=== PATIENT | female | born 1950 | race Two or more races ===

== ENCOUNTER 2021-09-03 13:10 | Inpatient (IN) | payer OTHER ==
[~2021-09-03] VITALS: Ht 144.8 cm; Wt 70.2 kg
[2021-09-03 13:55] LABS: Basophils # (auto) 0 10 ^3/uL (0-0.2); Basophils % (auto) 0.5 % (0.0-2.0); Eosinophils # (auto) 0 10 ^3/uL (0-0.8); Eosinophils % (auto) 0.3 % (0.0-7.0); Hematocrit 42.2 % (36.0-46.0); Hemoglobin 14.4 g/dL (12.2-16.2); Lymphocytes # (auto) 0.8 10 ^3/uL (0.4-5.4); Lymphocytes % (auto) 16.8 % (10.0-50.0); Mean Corpuscular Hemoglobin 32.1 pg (28.0-32.0); Mean Corpuscular Hgb Conc. 34.1 g/dL (32.0-36.0); Monocytes # (auto) 0.2 10 ^3/uL (0-1.3); Monocytes % (auto) 5.1 % (0.0-12.0); Neutrophils # (auto) 3.6 10 ^3/uL (1.6-8.6); Neutrophils % (auto) 77.3 % (37.0-80.0); Nucleated Red Blood Cells % 0.1 %; Red Blood Cells 4.49 10^6/uL (4.0-5.20); Red Cell Distribution Width 14.1 % (11.8-14.3); White Blood Cell 4.7 10^3/uL (4.4-10.8)
[2021-09-03 14:14] LABS: Albumin 3.1 g/dL (3.4-5.0); Calcium 8.9 mg/dL (8.5-10.1); Potassium 4.2 mmol/L (3.5-5.1)
[2021-09-03 14:42] LABS: Bilirubin, Total 1.5 mg/dL (0.2-1.0); Total Protein 7.5 g/dL (6.4-8.2)
[2021-09-04] MEDS ORDERED: HYDROcodone-ACET 5/325MG TAB PO PRN (03:30)
[2021-09-04] MEDS ORDERED: ACETAMINOPHEN 325 MG TAB PO PRN (03:30)
[2021-09-04] MEDS ORDERED: ONDANSETRON HCL 4 MG/2 ML VIAL IV PRN (03:30)
[2021-09-04 04:55] VITALS: BP 122/74
[2021-09-04] MEDS ORDERED: CHOL20007 PO (06:23)
[2021-09-04] MEDS ORDERED: CYAN100T7 PO (06:23)
[2021-09-04 09:00] VITALS: BP 97/61
[2021-09-04 12:53] VITALS: BP 128/76
[2021-09-04 17:00] VITALS: BP 136/83
[2021-09-04 22:00] VITALS: BP 129/88
[2021-09-05 05:00] VITALS: BP_SYST 135; BP_SYST 152; BP_SYST 155; BP_DIAS 70; BP_DIAS 80
[2021-09-05 09:00] VITALS: BP 128/78
[2021-09-05 10:20] LABS: Albumin 2.9 g/dL (3.4-5.0); Calcium 8.4 mg/dL (8.5-10.1); Potassium 4.6 mmol/L (3.5-5.1)
[2021-09-05 10:24] LABS: BUN/Creatinine Ratio 15.4; Bilirubin, Total 2.1 mg/dL (0.2-1.0)
[2021-09-05 13:00] VITALS: BP 127/76
[2021-09-05] MEDS ORDERED: MORPHINE SULFATE INJECTION 2 MG/ML SYRG IV PRN (13:15)
[2021-09-05] MEDS ORDERED: NITROGLYCERIN 0.4 MG SL TAB SL PRN (13:15)
[2021-09-05 16:51] VITALS: BP 145/85
== END 2021-09-05 16:35 | disposition left against medical advice (07) | DRG 312 ==
LOC: EDBD 13:10 → ER 13:10 → TELE 09-04 03:31 → INTOOBSV 09-04 03:31 → TELE-CENTR 09-04 04:55 → OBSVTOIN 09-05 13:14
PROVIDERS: ADMIT Internal Medicine; ATTEND Internal Medicine
DX: R55 Syncope and collapse (principal); R42 Dizziness and giddiness; E11.9 Type 2 diabetes mellitus without complications; E78.5 Hyperlipidemia, unspecified; F41.9 Anxiety disorder, unspecified; I25.10 Atherosclerotic heart disease of native coronary artery without angina pectoris; Z20.822 Contact with and (suspected) exposure to COVID-19; J45.909 Unspecified asthma, uncomplicated; Z53.29 Procedure and treatment not carried out because of patient's decision for other reasons; G30.9 Alzheimer's disease, unspecified; F02.80 Dementia in other diseases classified elsewhere, unspecified severity, without behavioral disturbance, psychotic disturbance, mood disturbance, and anxiety; I10 Essential (primary) hypertension; I25.2 Old myocardial infarction; Z82.49 Family history of ischemic heart disease and other diseases of the circulatory system; Z83.3 Family history of diabetes mellitus
CPT/HCPCS: 36415; 70450; 70551; 71045; 80053; 84484; 85025; 87426; 93005; 93306; 95819; 97163; G0378

== ENCOUNTER → 2023-02-17 | Outpatient (CLI) | payer OTHER ==
[~2023-02-17] MED LIST: CHOL20007 PO; CYAN100T7 PO
[2023-02-17 10:28] LABS: Basophils # (auto) 0 10 ^3/uL (0-0.2); Eosinophils # (auto) 0 10 ^3/uL (0-0.8); Hemoglobin 14.1 g/dL (12.2-16.2); Monocytes # (auto) 0.2 10 ^3/uL (0-1.3); White Blood Cell 2.6 10^3/uL (4.4-10.8)
[2023-02-17 10:31] LABS: Basophils % (auto) 0.6 % (0.0-2.0); Eosinophils % (auto) 1.3 % (0.0-7.0); Hematocrit 40.7 % (36.0-46.0); Lymphocytes % (auto) 38.8 % (10.0-50.0); Mean Corpuscular Hgb Conc. 34.6 g/dL (32.0-36.0); Mean Corpuscular Volume 98.4 fL (80.0-100.0); Monocytes % (auto) 8.8 % (0.0-12.0); Neutrophils # (auto) 1.3 10 ^3/uL (1.6-8.6); Neutrophils % (auto) 50.5 % (37.0-80.0); Nucleated Red Blood Cells % 0.2 %; Red Blood Cells 4.14 10^6/uL (4.0-5.20); Red Cell Distribution Width 14.3 % (11.8-14.3)
[2023-02-17 10:43] LABS: Urine Bacteria FEW /hpf (None Seen); Urine Blood Negative /uL (Negative); Urine Mucus FEW (None Seen); Urine Specific Gravity 1.019 (1.001-1.035); Urine WBC 3 /hpf (0 - 5)
[2023-02-17 11:06] LABS: BUN/Creatinine Ratio 28.6 (10.0-20.0); Bilirubin, Total 1.5 mg/dL (0.2-1.0); Calcium 8.3 mg/dL (8.5-10.1); Total Protein 7.2 g/dL (6.4-8.2)
[2023-02-18 10:33] LABS: Hepatitis B Surface Antibody Negative (Negative)
[2023-02-18 14:02] LABS: Hepatitis C Antibody Negative (Negative)
[2023-02-18 14:05] LABS: Hepatitis A Total Antibody Positive (Negative)
== END | disposition home or self-care (01) ==
LOC: LAB 10:08
PROVIDERS: ATTEND Student in an Organized Health Care Education/Training Program
DX: R73.9 Hyperglycemia, unspecified (principal); K76.9 Liver disease, unspecified; R03.0 Elevated blood-pressure reading, without diagnosis of hypertension
CPT/HCPCS: 36415; 80053; 80061; 81001; 82105; 83036; 85025; 86704; 86706; 86708; 86803; 87340

== ENCOUNTER → 2023-04-19 | Outpatient (CLI) | payer OTHER ==
[2023-04-19 12:07] LABS: Basophils # (auto) 0 10 ^3/uL (0-0.2); Eosinophils # (auto) 0.1 10 ^3/uL (0-0.8); Lymphocytes # (auto) 1.2 10 ^3/uL (0.4-5.4); Mean Corpuscular Volume 97.4 fL (80.0-100.0); Monocytes # (auto) 0.2 10 ^3/uL (0-1.3); Neutrophils # (auto) 1.2 10 ^3/uL (1.6-8.6)
[2023-04-19 12:10] LABS: Basophils % (auto) 0.4 % (0.0-2.0); Eosinophils % (auto) 2.5 % (0.0-7.0); Hematocrit 40.4 % (36.0-46.0); Hemoglobin 13.8 g/dL (12.2-16.2); Lymphocytes % (auto) 44.7 % (10.0-50.0); Mean Corpuscular Hemoglobin 33.2 pg (28.0-32.0); Mean Corpuscular Hgb Conc. 34.1 g/dL (32.0-36.0); Monocytes % (auto) 8.8 % (0.0-12.0); Neutrophils % (auto) 43.6 % (37.0-80.0); Nucleated Red Blood Cells % 0.1 %; Red Blood Cells 4.15 10^6/uL (4.0-5.20); Red Cell Distribution Width 14.2 % (11.8-14.3); White Blood Cell 2.7 10^3/uL (4.4-10.8)
[2023-04-19 12:18] LABS: INR 1.28 (0.9-1.15); Partial Thromboplastin Time 30.6 SEC (24.5-34.5)
[2023-04-19 12:36] LABS: Urine Bacteria MANY /hpf (None Seen); Urine Blood Negative /uL (Negative); Urine Hyaline Cast FEW /lpf (0 - 2); Urine Mucus MODERATE (None Seen); Urine Specific Gravity 1.023 (1.001-1.035); Urine WBC 21 /hpf (0 - 5)
[2023-04-19 12:44] LABS: Albumin 2.8 g/dL (3.4-5.0); Calcium 8.7 mg/dL (8.5-10.1); Potassium 3.9 mmol/L (3.5-5.1)
[2023-04-19 12:49] LABS: BUN/Creatinine Ratio 21.2 (10.0-20.0); Bilirubin, Total 1.3 mg/dL (0.2-1.0)
[2023-04-19 13:17] LABS: % Iron Saturation 93.1 % (15-50)
[2023-04-19 13:31] LABS: Hepatitis B Surface Antibody Negative (Negative)
[2023-04-19 14:08] LABS: Hepatitis A Total Antibody Positive (Negative)
[2023-04-19 15:54] LABS: Hepatitis C Antibody Negative (Negative)
[2023-04-20 08:06] LABS: RPR Non Reactive (Non Reactive)
== END | disposition home or self-care (01) ==
LOC: LAB 11:28
DX: Z12.11 Encounter for screening for malignant neoplasm of colon (principal); K74.69 Other cirrhosis of liver; E78.5 Hyperlipidemia, unspecified
CPT/HCPCS: 36415; 80053; 80061; 81001; 82270; 82728; 83036; 83540; 83550; 85025; 85610; 85730; 86592; 86703; 86704; 86706; 86708; 86803; 87340

== ENCOUNTER → 2023-08-18 | Outpatient (CLI) | payer OTHER ==
[2023-08-18 11:28] LABS: Basophils # (auto) 0 10 ^3/uL (0-0.2); Eosinophils # (auto) 0 10 ^3/uL (0-0.8); Hemoglobin 13.6 g/dL (12.2-16.2); Mean Corpuscular Hemoglobin 33.3 pg (28.0-32.0); Mean Corpuscular Hgb Conc. 34.1 g/dL (32.0-36.0); Monocytes # (auto) 0.2 10 ^3/uL (0-1.3); Nucleated Red Blood Cells % 0.2 %; Red Cell Distribution Width 14.3 % (11.8-14.3); White Blood Cell 2.7 10^3/uL (4.4-10.8)
[2023-08-18 11:30] LABS: Basophils % (auto) 0.5 % (0.0-2.0); Eosinophils % (auto) 1.7 % (0.0-7.0); Hematocrit 39.9 % (36.0-46.0); Lymphocytes % (auto) 38.7 % (10.0-50.0); Mean Corpuscular Volume 97.7 fL (80.0-100.0); Monocytes % (auto) 7.7 % (0.0-12.0); Neutrophils # (auto) 1.4 10 ^3/uL (1.6-8.6); Neutrophils % (auto) 51.4 % (37.0-80.0); Red Blood Cells 4.09 10^6/uL (4.0-5.20)
[2023-08-18 11:46] LABS: INR 1.27 (0.9-1.15); Prothrombin Time 13.1 sec (9.3-11.8)
[2023-08-18 11:52] LABS: Alanine Aminotransferase 33 U/L (7-40); Albumin 3.4 g/dL (3.2-4.8); Alkaline Phosphatase 200 U/L (46-116); Anion Gap 6 (5-15); Aspartate Aminotransferase 58 U/L (13-40); BUN/Creatinine Ratio 19.6 (10.0-20.0); Bilirubin, Total 1.6 mg/dL (0.2-1.0); Blood Urea Nitrogen 9 mg/dL (9-23); Calcium 8.6 mg/dL (8.7-10.4); Carbon Dioxide 25 mmol/L (20-30); Chloride 109 mmol/L (98-107); Potassium 3.9 mmol/L (3.5-5.1); Sodium 140 mmol/L (136-145); Total Protein 7.1 g/dL (5.7-8.2)
[2023-08-18 12:18] LABS: Glucose 102 mg/dL (74-106)
== END | disposition home or self-care (01) ==
LOC: LAB 11:07
PROVIDERS: ATTEND Internal Medicine Gastroenterology
DX: K74.60 Unspecified cirrhosis of liver (principal); R94.5 Abnormal results of liver function studies
CPT/HCPCS: 36415; 80053; 82105; 82140; 85025; 85610

== ENCOUNTER 2023-09-07 14:27 | Emergency (ER) | payer OTHER ==
[~2023-09-07] VITALS: Ht 144.8 cm; Wt 8.0 kg
[2023-09-07] MEDS ORDERED: ACET500T58 PO (21:56)
[2023-09-07] MEDS ORDERED: AMOX875T4 PO (21:56)
[2023-09-07 22:39] VITALS: BP 135/75; PULSE 73; RESP 18; TEMP 98.2; O2SAT 98
== END 2023-09-07 22:54 | disposition home or self-care (01) ==
LOC: ER 14:27
DX: T16.2XXA Foreign body in left ear, initial encounter (principal); X58.XXXA Exposure to other specified factors, initial encounter; Y93.89 Activity, other specified; Y92.89 Other specified places as the place of occurrence of the external cause; Y99.8 Other external cause status
CPT/HCPCS: 69200

== ENCOUNTER → 2023-11-19 | Outpatient (CLI) | payer OTHER ==
[~2023-11-19] MED LIST changes: +ACET500T58 PO; +AMOX875T4 PO
[2023-11-19 11:57] LABS: Basophils # (auto) 0 10 ^3/uL (0-0.2); Eosinophils # (auto) 0.1 10 ^3/uL (0-0.8); Eosinophils % (auto) 1.6 % (0.0-7.0); Lymphocytes # (auto) 1.5 10 ^3/uL (0.4-5.4); Monocytes # (auto) 0.3 10 ^3/uL (0-1.3); Red Blood Cells 4.25 10^6/uL (4.0-5.20); White Blood Cell 4.1 10^3/uL (4.4-10.8)
[2023-11-19 11:59] LABS: Basophils % (auto) 0.6 % (0.0-2.0); Hematocrit 41.2 % (36.0-46.0); Hemoglobin 14.1 g/dL (12.2-16.2); Lymphocytes % (auto) 36.6 % (10.0-50.0); Mean Corpuscular Hemoglobin 33.1 pg (28.0-32.0); Mean Corpuscular Hgb Conc. 34.1 g/dL (32.0-36.0); Mean Corpuscular Volume 97.1 fL (80.0-100.0); Monocytes % (auto) 7.8 % (0.0-12.0); Neutrophils # (auto) 2.2 10 ^3/uL (1.6-8.6); Neutrophils % (auto) 53.4 % (37.0-80.0); Nucleated Red Blood Cells % 0.1 %; Red Cell Distribution Width 14.7 % (11.8-14.3)
[2023-11-19 12:09] LABS: Platelet Estimate Decreased
[2023-11-19 12:39] LABS: Urine Bacteria FEW /hpf (None Seen); Urine Blood Negative /uL (Negative); Urine Clarity HAZY (Clear); Urine Color Yellow (Yellow); Urine Mucus FEW (None Seen); Urine Protein, UAD TRACE (Negative); Urine Specific Gravity 1.022 (1.001-1.035); Urine WBC 13 /hpf (0 - 5); Urine pH 6.5 (5.0-8.0)
[2023-11-19 12:56] LABS: Alanine Aminotransferase 33 U/L (7-40); Albumin 3.3 g/dL (3.2-4.8); Alkaline Phosphatase 241 U/L (46-116); Anion Gap 6 (5-15); Aspartate Aminotransferase 55 U/L (13-40); BUN/Creatinine Ratio 22.4 (10.0-20.0); Blood Urea Nitrogen 11 mg/dL (9-23); Calcium 8.7 mg/dL (8.5-10.1); Carbon Dioxide 24 mmol/L (20-30); Chloride 110 mmol/L (98-107); Glucose 112 mg/dL (74-106); LDL Cholesterol 102 mg/dL (< 100); Sodium 140 mmol/L (136-145); Triglycerides 74 mg/dL (< 150)
[2023-11-19 12:57] LABS: Bilirubin, Total 1.5 mg/dL (0.2-1.0); Cholesterol 167 mg/dL (< 200); HDL Cholesterol 57 mg/dL (40-59); Total Protein 6.9 g/dL (5.7-8.2)
[2023-11-19 13:00] LABS: Creatinine, Urine 132.92 mg/dL (30.0-125.0)
== END | disposition home or self-care (01) ==
LOC: LAB 11:43
DX: E11.9 Type 2 diabetes mellitus without complications (principal); E78.5 Hyperlipidemia, unspecified; E55.9 Vitamin D deficiency, unspecified
CPT/HCPCS: 36415; 80053; 80061; 81001; 82043; 82570; 83036; 84443; 85025

== ENCOUNTER → 2024-03-31 | Outpatient (CLI) | payer OTHER ==
[2024-03-31 11:53] LABS: Urine Bacteria MOD /hpf (None Seen); Urine Blood Negative /uL (Negative); Urine Clarity Turbid (Clear); Urine Color Yellow (Yellow); Urine Hyaline Cast FEW /lpf (0 - 2); Urine Mucus MODERATE (None Seen); Urine Protein, UAD 1+ (Negative); Urine Specific Gravity 1.027 (1.001-1.035); Urine Urobilinogen 3 mg/dL (Negative); Urine WBC 12 /hpf (0 - 5); Urine pH 6.5 (5.0-9.0)
[2024-03-31 11:56] LABS: Basophils # (auto) 0 10 ^3/uL (0-0.2); Eosinophils # (auto) 0 10 ^3/uL (0-0.8); Lymphocytes # (auto) 1.1 10 ^3/uL (0.4-5.4); Monocytes # (auto) 0.3 10 ^3/uL (0-1.3); Neutrophils # (auto) 1.7 10 ^3/uL (1.6-8.6); Nucleated Red Blood Cells % 0.1 %; Red Blood Cells 4.18 10^6/uL (4.0-5.20); White Blood Cell 3.1 10^3/uL (4.4-10.8)
[2024-03-31 11:57] LABS: Basophils % (auto) 0.7 % (0.0-2.0); Eosinophils % (auto) 1.4 % (0.0-7.0); Hematocrit 40.7 % (36.0-46.0); Hemoglobin 14.4 g/dL (12.2-16.2); Lymphocytes % (auto) 34.7 % (10.0-50.0); Mean Corpuscular Hemoglobin 34.4 pg (28.0-32.0); Mean Corpuscular Hgb Conc. 35.3 g/dL (32.0-36.0); Mean Corpuscular Volume 97.4 fL (80.0-100.0); Monocytes % (auto) 9.1 % (0.0-12.0); Neutrophils % (auto) 54.1 % (37.0-80.0); Red Cell Distribution Width 14.2 % (11.8-14.3)
[2024-03-31 12:14] LABS: Alanine Aminotransferase 27 U/L (7-40); Albumin 3.4 g/dL (3.2-4.8); Alkaline Phosphatase 163 U/L (46-116); Anion Gap 5 (5-15); Aspartate Aminotransferase 49 U/L (13-40); Bilirubin, Total 1.9 mg/dL (0.2-1.0); Blood Urea Nitrogen 11 mg/dL (9-23); Calcium 9.2 mg/dL (8.5-10.1); Carbon Dioxide 25 mmol/L (20-30); Chloride 108 mmol/L (98-107); Cholesterol 144 mg/dL (< 200); Glucose 108 mg/dL (74-106); HDL Cholesterol 47 mg/dL (40-59); LDL Cholesterol 79 mg/dL (< 100); Potassium 4.4 mmol/L (3.5-5.1); Sodium 138 mmol/L (136-145); Triglycerides 87 mg/dL (< 150)
== END | disposition home or self-care (01) ==
LOC: LAB 11:36
DX: E11.69 Type 2 diabetes mellitus with other specified complication (principal); E78.2 Mixed hyperlipidemia; D69.6 Thrombocytopenia, unspecified
CPT/HCPCS: 36415; 80053; 80061; 81001; 83036; 85025

== ENCOUNTER → 2024-07-25 | Outpatient (CLI) | payer OTHER ==
[~2024-07-25] MED LIST changes: -AMOX875T4 PO; +FURO1TAB33 PO; +SPIR25TA8 PO
[2024-07-25 10:38] LABS: Basophils # (auto) 0 10 ^3/uL (0-0.2); Eosinophils # (auto) 0 10 ^3/uL (0-0.8); Monocytes # (auto) 0.3 10 ^3/uL (0-1.3); Neutrophils # (auto) 1.9 10 ^3/uL (1.6-8.6); Red Cell Distribution Width 14.6 % (11.8-14.3)
[2024-07-25 10:43] LABS: Basophils % (auto) 0.6 % (0.0-2.0); Eosinophils % (auto) 1.1 % (0.0-7.0); Hematocrit 40.1 % (36.0-46.0); Hemoglobin 13.9 g/dL (12.2-16.2); Lymphocytes # (auto) 0.9 10 ^3/uL (0.4-5.4); Lymphocytes % (auto) 29.7 % (10.0-50.0); Mean Corpuscular Hemoglobin 34.3 pg (28.0-32.0); Mean Corpuscular Hgb Conc. 34.6 g/dL (32.0-36.0); Mean Corpuscular Volume 99.3 fL (80.0-100.0); Monocytes % (auto) 8.5 % (0.0-12.0); Neutrophils % (auto) 60.1 % (37.0-80.0); Nucleated Red Blood Cells % 0.1 %; Platelet Count (auto) 49 10^3/uL (140-450); Red Blood Cells 4.04 10^6/uL (4.0-5.20); White Blood Cell 3.1 10^3/uL (4.4-10.8)
[2024-07-25 10:53] LABS: Alanine Aminotransferase 41 U/L (7-40); Albumin 3.4 g/dL (3.2-4.8); Alkaline Phosphatase 218 U/L (46-116); Anion Gap 6 (5-15); Aspartate Aminotransferase 52 U/L (13-40); BUN/Creatinine Ratio 21.8 (10.0-20.0); Blood Urea Nitrogen 12 mg/dL (9-23); Calcium 9.6 mg/dL (8.7-10.4); Carbon Dioxide 26 mmol/L (20-31); Chloride 111 mmol/L (98-107); Glucose 130 mg/dL (74-106); LDL Cholesterol 117 mg/dL (< 100); Potassium 4.5 mmol/L (3.5-5.1); Sodium 143 mmol/L (136-145); Triglycerides 86 mg/dL (< 150); Urine Bacteria FEW /hpf (None Seen); Urine Blood Negative /uL (Negative); Urine Clarity Clear (Clear); Urine Color Yellow (Yellow); Urine Mucus FEW (None Seen); Urine Protein, UAD Negative (Negative); Urine Urobilinogen Normal (Negative); Urine WBC 2 /hpf (0 - 5)
[2024-07-25 10:54] LABS: Bilirubin, Total 1.4 mg/dL (0.2-1.0); Cholesterol 201 mg/dL (< 200); HDL Cholesterol 61 mg/dL (40-59); Total Protein 7.1 g/dL (5.7-8.2)
[2024-07-25 11:13] LABS: Creatinine, Urine 87.29 mg/dL (30.0-125.0)
== END | disposition home or self-care (01) ==
LOC: LAB 09:50
DX: E11.69 Type 2 diabetes mellitus with other specified complication (principal); E78.5 Hyperlipidemia, unspecified; E55.9 Vitamin D deficiency, unspecified
CPT/HCPCS: 36415; 80053; 80061; 81001; 82043; 82105; 82306; 82570; 83036; 84443; 85025; 87086

== ENCOUNTER → 2024-12-19 | Outpatient (CLI) | payer OTHER ==
[2024-12-19 13:18] LABS: Basophils # (auto) 0 10 ^3/uL (0-0.2); Basophils % (auto) 0.4 % (0.0-2.0); Eosinophils # (auto) 0 10 ^3/uL (0-0.8); Eosinophils % (auto) 0.9 % (0.0-7.0); Hematocrit 39.5 % (36.0-46.0); Lymphocytes # (auto) 0.9 10 ^3/uL (0.4-5.4); Mean Corpuscular Hemoglobin 34.5 pg (28.0-32.0); Mean Corpuscular Hgb Conc. 35.4 g/dL (32.0-36.0); Mean Corpuscular Volume 97.3 fL (80.0-100.0); Monocytes # (auto) 0.3 10 ^3/uL (0-1.3); Monocytes % (auto) 8.8 % (0.0-12.0); Neutrophils % (auto) 60.9 % (37.0-80.0); Nucleated Red Blood Cells % 0.1 %; Red Blood Cells 4.07 10^6/uL (4.0-5.20); White Blood Cell 3.2 10^3/uL (4.4-10.8)
[2024-12-19 13:19] LABS: Platelet Count (auto) 96 10^3/uL (140-450)
[2024-12-19 13:25] LABS: Amphetamine Screen, Urine Neg (NEGATIVE); Barbiturate Scree,Urine Neg (NEGATIVE); Benzodiazephine Screen, Urine Neg (NEGATIVE); Cannabinoid Screen, Urine Neg (NEGATIVE); Cocaine Screen, Urine Neg (NEGATIVE); Opiate Scree,Urine Neg (NEGATIVE); Phencyclidine Screen, Urine Neg (NEGATIVE)
[2024-12-19 14:05] LABS: Albumin 3.5 g/dL (3.2-4.8); Anion Gap 6 (5-15); BUN/Creatinine Ratio 18.2 (10.0-20.0); Blood Urea Nitrogen 10 mg/dL (9-23); Calcium 9.4 mg/dL (8.7-10.4); Carbon Dioxide 25 mmol/L (20-31); Chloride 106 mmol/L (98-107); Cholesterol 139 mg/dL (< 200); HDL Cholesterol 43 mg/dL (40-59); LDL Cholesterol 76 mg/dL (< 100); Potassium 4.2 mmol/L (3.5-5.1); Sodium 137 mmol/L (136-145); Total Protein 7.2 g/dL (5.7-8.2); Triglycerides 84 mg/dL (< 150)
[2024-12-19 14:06] LABS: Alanine Aminotransferase 45 U/L (7-40); Alkaline Phosphatase 189 U/L (46-116); Aspartate Aminotransferase 59 U/L (13-40); Bilirubin, Total 2.2 mg/dL (0.2-1.0); Glucose 120 mg/dL (74-106)
== END | disposition home or self-care (01) ==
LOC: LAB 12:05
PROVIDERS: ATTEND Nurse Practitioner Family
DX: E11.69 Type 2 diabetes mellitus with other specified complication (principal); E55.9 Vitamin D deficiency, unspecified; D69.6 Thrombocytopenia, unspecified; R79.89 Other specified abnormal findings of blood chemistry
CPT/HCPCS: 36415; 80053; 80061; 80307; 82306; 83036; 85025

== ENCOUNTER 2024-12-22 08:50 | Day surgery (SDC) | payer OTHER ==
[2024-12-19 12:32] LABS: Basophils # (auto) 0 10 ^3/uL (0-0.2); Eosinophils # (auto) 0 10 ^3/uL (0-0.8); Monocytes # (auto) 0.3 10 ^3/uL (0-1.3)
[2024-12-19 12:34] LABS: Basophils % (auto) 0.4 % (0.0-2.0); Eosinophils % (auto) 0.9 % (0.0-7.0); Hematocrit 39.5 % (36.0-46.0); Lymphocytes # (auto) 0.9 10 ^3/uL (0.4-5.4); Mean Corpuscular Hemoglobin 34.5 pg (28.0-32.0); Mean Corpuscular Hgb Conc. 35.4 g/dL (32.0-36.0); Mean Corpuscular Volume 97.3 fL (80.0-100.0); Monocytes % (auto) 8.8 % (0.0-12.0); Neutrophils % (auto) 60.9 % (37.0-80.0); Nucleated Red Blood Cells % 0.1 %; Red Blood Cells 4.07 10^6/uL (4.0-5.20); White Blood Cell 3.2 10^3/uL (4.4-10.8)
[2024-12-19 12:48] LABS: INR 1.22 (0.9-1.15); Partial Thromboplastin Time 30.3 SEC (24.5-34.5); Prothrombin Time 12.7 sec (9.3-11.8)
[2024-12-19 13:13] LABS: Platelet Count (auto) 96 10^3/uL (140-450)
[2024-12-19 13:28] LABS: Albumin 3.5 g/dL (3.2-4.8); Anion Gap 7 (5-15); BUN/Creatinine Ratio 22.2 (10.0-20.0); Blood Urea Nitrogen 12 mg/dL (9-23); Calcium 9.6 mg/dL (8.7-10.4); Carbon Dioxide 26 mmol/L (20-31); Chloride 105 mmol/L (98-107); Potassium 4.2 mmol/L (3.5-5.1); Sodium 138 mmol/L (136-145); Total Protein 7.2 g/dL (5.7-8.2)
[2024-12-19 13:29] LABS: Alanine Aminotransferase 46 U/L (7-40); Alkaline Phosphatase 188 U/L (46-116); Aspartate Aminotransferase 58 U/L (13-40); Bilirubin, Total 2.2 mg/dL (0.2-1.0); Glucose 120 mg/dL (74-106)
[~2024-12-22] VITALS: Ht 144.8 cm; Wt 63.0 kg
[~2024-12-22 08:50] MED LIST changes: -FURO1TAB33 PO; -SPIR25TA8 PO
[2024-12-22] MEDS ORDERED: SODIUM CHLORIDE LOCK 10 ML ONE (10:49)
[2024-12-22 10:54] VITALS: PULSE 79; RESP 16; O2SAT 99
[2024-12-22] MEDS ORDERED: LIDOCAINE VISCOUS 2% 15ML UD ONE (10:57)
[2024-12-22] MEDS: LIDOCAINE VISCOUS 2% 15ML UD ONE (10:57)
[2024-12-22] MEDS: MIDAZOLAM HCL 5 MG/ML-1ML VIAL ONE (10:59)
[2024-12-22] MEDS: diphenhdrAMINE HCL 50 MG/1 ML VL ONE (10:59)
[2024-12-22] MEDS: fentaNYL CITRATE 100 MCG/2 ML VL ONE (10:59)
[2024-12-22 11:12] VITALS: PULSE 69; RESP 13; TEMP 98.8; O2SAT 98
--- NOTE | 2024-12-22 11:12 | DVHOP2 ---
Operative Report DATE OF OPERATION: 12/22/24 PROCEDURE: Upper Endoscopy with biopsy. PREOPERATIVE INDICATION: The patient is a 74 -year-old female undergoing endoscopy for left upper quadrant pain POSTOPERATIVE DIAGNOSES: 1. Mild gastritis and gastropathy involving the entire body of the stomach number 2. 1 cm sliding-type hiatal hernia 3. 1+ distal esophageal varices 4. Otherwise normal examination up to the 2nd and 3rd part of the duodenum with no active bleeding no fresh or old blood in the stomach PROCEDURE PERFORMED BY: Marjorie Syed GI NURSE: Jasmin SCOPE: Olympus videoendoscope. ASA CLASS: 3 PREOPERATIVE MEDICATIONS: Versed 3 mg, Fentanyl 50 mcg, Benadryl 50 mg I administered moderate sedation throughout this _7_ minutes procedure. An independent trained observer pushed medications at my direction, and monitored the patient's level of consciousness and physiological status throughout. PROCEDURE IN DETAIL: After obtaining an informed consent, the patient was placed on left lateral decubitus position. The patient was then sedated with the above medications. A bite block was placed between her teeth. The endoscope was then passed through the oropharynx, into the esophagus, and through the stomach and pylorus up to the second and third part of the duodenum. The endoscope was then withdrawn. The 2nd and 3rd part of the duodenal and the duodenal bulb were normal. The pre-pyloric area and antrum showed mild gastritis On retroflexion and straight on view the patient had moderate gastropathy involving the body of the stomach. Duodenal and gastric biopsies were obtained. The endoscope was then withdrawn into the distal esophagus where patient had a 1 cm sliding-type hiatal hernia with slightly irregular squamocolumnar junction Patient had a trace to 1+ distal esophageal varices without stigmata of bleeding. The remaining mid to proximal esophagus and oropharynx were unremarkable The patient tolerated the procedure well without difficulty. COMPLICATIONS : None SPECIMENS: Duodenal biopsies Gastric biopsies DISPOSITION: Stable D/C to home PLAN: 1. Await for biopsy result 2. Will place pt on Protonix 40 mg p.o. daily 3. Resume GI soft diet advance as tolerated 4. Outpatient follow up with me in 4-6 weeks to review results and discuss further management 5. Consider trial of beta-blockers for variceal bleeding prophylaxis MARJORIE SYED MD Dec 22, 2024 11:12
[2024-12-22 11:20] VITALS: PULSE 67; RESP 13; O2SAT 100
[2024-12-22 12:13] VITALS: BP 124/62; PULSE 64; RESP 14; O2SAT 100
== END 2024-12-22 12:28 | disposition home or self-care (01) ==
LOC: GI 08:50
PROVIDERS: ATTEND Internal Medicine Gastroenterology
DX: R10.12 Left upper quadrant pain (principal); K21.9 Gastro-esophageal reflux disease without esophagitis; K29.50 Unspecified chronic gastritis without bleeding; K31.89 Other diseases of stomach and duodenum; K44.9 Diaphragmatic hernia without obstruction or gangrene; K74.60 Unspecified cirrhosis of liver; I85.00 Esophageal varices without bleeding; F32.A Depression, unspecified; F41.9 Anxiety disorder, unspecified; Z83.3 Family history of diabetes mellitus; Z98.890 Other specified postprocedural states; Z79.899 Other long term (current) drug therapy
CPT/HCPCS: 36415; 43239; 80053; 85025; 85610; 85730; 88305; 88312; 88342; J1200; J2250; J3010; J7030

== ENCOUNTER 2025-03-01 11:11 | Outpatient (CLI) | payer OTHER ==
[2025-03-01 11:45] LABS: Basophils # (auto) 0 10 ^3/uL (0-0.2); Eosinophils # (auto) 0 10 ^3/uL (0-0.8); Hemoglobin 13.6 g/dL (12.2-16.2); Lymphocytes # (auto) 0.8 10 ^3/uL (0.4-5.4); Mean Corpuscular Hemoglobin 33.6 pg (28.0-32.0); Monocytes # (auto) 0.3 10 ^3/uL (0-1.3); Neutrophils # (auto) 2.1 10 ^3/uL (1.6-8.6)
[2025-03-01 11:48] LABS: Basophils % (auto) 0.4 % (0.0-2.0); Hematocrit 38.7 % (36.0-46.0); Lymphocytes % (auto) 24.8 % (10.0-50.0); Mean Corpuscular Hgb Conc. 35.1 g/dL (32.0-36.0); Mean Corpuscular Volume 95.9 fL (80.0-100.0); Monocytes % (auto) 8.3 % (0.0-12.0); Neutrophils % (auto) 65.5 % (37.0-80.0); Nucleated Red Blood Cells % 0.1 %; Platelet Count (auto) 55 10^3/uL (140-450); Red Blood Cells 4.04 10^6/uL (4.0-5.20); Red Cell Distribution Width 14.1 % (11.8-14.3); White Blood Cell 3.1 10^3/uL (4.4-10.8)
[2025-03-01 11:49] LABS: Urine Bacteria FEW /hpf (None Seen); Urine Blood Negative /uL (Negative); Urine Clarity Clear (Clear); Urine Color Yellow (Yellow); Urine Mucus FEW (None Seen); Urine Protein, UAD TRACE (Negative); Urine Specific Gravity 1.026 (1.001-1.035); Urine Squamous Epithelial Cell FEW /hpf (<5); Urine Urobilinogen 2 mg/dL (Negative); Urine WBC 4 /HPF (0-5)
[2025-03-01 12:22] LABS: Albumin 3.3 g/dL (3.2-4.8); Amylase 85 U/L (30-118); Anion Gap 7 (5-15); BUN/Creatinine Ratio 23.9 (10.0-20.0); Blood Urea Nitrogen 11 mg/dL (9-23); Carbon Dioxide 25 mmol/L (20-31); Lipase 37 U/L (12-53); Potassium 4.3 mmol/L (3.5-5.1); Sodium 140 mmol/L (136-145); Total Protein 6.8 g/dL (5.7-8.2)
[2025-03-01 12:23] LABS: Alanine Aminotransferase 51 U/L (7-40); Alkaline Phosphatase 207 U/L (46-116); Aspartate Aminotransferase 67 U/L (0-34); Bilirubin, Total 1.8 mg/dL (0.2-1.0); Calcium 8.6 mg/dL (8.7-10.4); Chloride 108 mmol/L (98-107); Glucose 142 mg/dL (74-106)
[2025-03-01 14:50] LABS: Triglycerides 75 mg/dL (< 150)
[2025-03-01 14:51] LABS: LDL Cholesterol 76 mg/dL (< 100)
[2025-03-01 14:52] LABS: Cholesterol 145 mg/dL (< 200); HDL Cholesterol 46 mg/dL (40-59)
[2025-03-01 15:04] LABS: Creatinine, Urine 194.6 mg/dL (30.0-125.0)
== END 2025-03-01 17:00 | disposition home or self-care (01) ==
LOC: LAB 11:11
PROVIDERS: ATTEND Nurse Practitioner Family
DX: E78.5 Hyperlipidemia, unspecified (principal); E55.9 Vitamin D deficiency, unspecified; E11.69 Type 2 diabetes mellitus with other specified complication; R10.12 Left upper quadrant pain
CPT/HCPCS: 36415; 80053; 80061; 81001; 82043; 82150; 82306; 82570; 82607; 83036; 83690; 84443; 85025

== ENCOUNTER 2025-03-22 01:27 | Inpatient (IN) | payer OTHER ==
[2025-03-22] VITALS (7 sets, daily range): BP systolic 116–137; BP diastolic 52–78; PULSE 75–85; RESP 13–18; TEMP 97.7–98; O2SAT 96–98
[~2025-03-22] VITALS: Ht 144.8 cm; Wt 73.1 kg
--- NOTE | 2025-03-22 01:49 | ED.PDOC ---
HPI Comments 74 year old female presents to the ED via EMS with a chief complaint of chest pain onset 3 hours. Patient states she has been experiencing Rt sided chest pain for the past 3 hours, radiates to LT side. She has also been experiencing nausea, was given Nitro by EMS in route to ED. PMHx liver cirrhosis. Denies vomiting, diarrhea, headache, dizziness, blurry vision, fevers, chills, numbness/tingling. No other symptoms or modifying factors present at this time. Chief Complaint: Chest Pain Time Seen by MD: 01:40 Primary Care Provider: CUMMINS Reviewed Notes: Medications, Allergies Allergies: Coded Allergies: NO KNOWN ALLERGIES (Unverified , 09/03/21) Home Meds Active Scripts Acetaminophen (Acetaminophen) 500 Mg Tab, 500 MG PO Q6HPRN, #30 TAB 0 Refills Prov:JEZ CAMACHO 09/07/23 Reported Medications Cyanocobalamin (Vitamin B12) 100 Mcg Tab, 100 MCG PO DAILY, TAB 09/04/21 Cholecalciferol (VITAMIN D3) 2,000 Unit Tab, 1 TAB PO DAILY, #30 TAB 5 Refills 09/04/21 Information Source: Patient, Emergency Med Personnel Mode of Arrival: EMS Severity: Mild Timing: Hours Duration: Since onset Prehospital treatment: Other (Nitro) Location: Chest (R) Quality: Sharp Onset: At Rest Cardiac Risk Factors: None PE Risk Factors: None History of: None Past Medical History PAST MEDICAL HISTORY: Liver Surgical History: Denies all surgeries EMPLOYMENT ATTORNEY History: No Pertinent EMPLOYMENT ATTORNEY History Family History Family History: Unknown Social History Smoker: Non-Smoker Alcohol: Denies ETOH Use Drugs: Denies Drug Use Lives In: Home Constitutional: denies: chills, diaphoresis, fatigue, fever, malaise, sweats, weakness, others EENTM: denies: blurred vision, double vision, ear bleeding, ear discharge, ear drainage, ear pain, ear ringing, eye pain, eye redness, hearing loss, mouth pain, mouth swelling, nasal discharge, nose bleeding, nose congestion, nose pain, photophobia, tearing, throat pain, throat swelling, voice changes, others Respiratory: denies: cough, hemoptysis, orthopnea, SOB at rest, shortness of breath, SOB with excertion, stridor, wheezing, others Cardiovascular: reports: chest pain; denies: dizzy spells, diaphoresis, Dyspnea on exertion, edema, irregular heart beat, left arm pain, lightheadedness, palpitations, PND, syncope, others Gastrointestinal: reports: nausea; denies: abdomen distended, abdominal pain, blood streaked bowels, constipated, diarrhea, dysphagia, difficulty swallowing, hematemesis, melena, poor appetite, poor fluid intake, rectal bleeding, rectal pain, vomiting, others Genitourinary: denies: abnormal vagina bleeding, burning, dyspareunia, dysuria, flank pain, frequency, hematuria, incontinence, pain, , vagina discharge, urgency, others Neurological: denies: dizziness, fainting, headache, left sided numbness, left sided weakness, numbness, paresthesia, pre-existing deficit, right sided numbness, right sided weakness, seizure, speech problems, tingling, tremors, weakness, others Musculoskeletal: denies: back pain, gout, joint pain, joint swelling, muscle pain, muscle stiffness, neck pain, others Integumetry: denies: bruises, change in color, change in hair/nails, dryness, laceration, lesions, lumps, rash, wounds, others Allergic/Immunocompromised: denies: Difficulty Healing, Frequent Infections, Hives, Itching, others Hematologic/Lymphatic: denies: anemia, blood clots, easy bleeding, easy bruising, swollen glands, others Endocrine: denies: excessive hunger, excessive sweating, excessive thirst, excessive urination, flushing, intolerance to cold, intolerance to heat, unexplained weight gain, unexplained weight loss, others Psychiatric: denies: anxiety, bipolar disorder, depression, hopeless, panic disorder, schizophrenia, sleepless, suicidal, others All Other Systems: Reviewed and Negative Physical Exam General Appearance: No Apparent Distress, Normal HEENT: Normal ENT Inspection, Pharynx Normal, TMs Normal Neck: Full Range of Motion, Non-Tender, Normal, Normal Inspection Respiratory: Chest Non-Tender, Lungs Clear, No Accessory Muscle Use, No Respiratory Distress, Normal Breath Sounds Cardiovascular: No Edema, No JVD, No Murmur, No Gallop, Normal Peripheral Pulses, Regular Rate/Rhythm Breast Exam: Deferred Gastrointestinal: No Organomegaly, Non Tender, No Pulsatile Mass, Normal Bowel Sounds, Soft Genitalia: Deferred Pelvic: Deferred Rectal: Deferred Extremities: No calf tenderness, Normal capillary refill, Normal inspection, Normal range of motion, Non-tender, No pedal edema Musculoskeletal : Apperance: Normal Neurologic: Alert, optical brightener maker helper II-XII nml as Tested, No Motor Deficits, Normal Affect, Normal Mood, No Sensory Deficits Cerebellar Function: Normal Reflexes: Normal Skin: Dry, Normal Color, Warm Lymphatic: No Adenopathy Was a procedure done? Was a procedure done?: No Time of 1ST Reevaluation: 02:10 Reevaluation 1ST: Unchanged Patient Education/Counseling: Diagnosis, Treatment, Prognosis Family Education/Counseling: No Family Present Critical Care Note Critical Care Time?: No Stability Stability form required: No I personally scribed for ANNIE HARRISON MD ([email or web address]) on 03/22/25 at 01:49. Electronically submitted by Lakeshia Davis ([email or web address]). ANNIE HARRISON MD Mar 22, 2025 01:49
[2025-03-22 02:18] LABS: Hematocrit 33.4 % (36.0-46.0); Hemoglobin 11.6 g/dL (12.2-16.2); Mean Corpuscular Hemoglobin 33.6 pg (28.0-32.0); Mean Corpuscular Volume 96.7 fL (80.0-100.0); Nucleated Red Blood Cells % 0.0 %
[2025-03-22 02:30] LABS: Chloride 107 mmol/L (98-107); Potassium 4.1 mmol/L (3.5-5.1); Sodium 139 mmol/L (136-145)
[2025-03-22 02:31] LABS: Anion Gap 6 (5-15); Calcium 8.9 mg/dL (8.7-10.4); Carbon Dioxide 26 mmol/L (20-31)
[2025-03-22 02:36] LABS: BUN/Creatinine Ratio 26.4 (10.0-20.0); Blood Urea Nitrogen 14 mg/dL (9-23)
--- NOTE | 2025-03-22 02:39 | DVH ---
CHEST RADIOGRAPH Indication: chest pain Technique: Single frontal view of the chest was obtained Comparison: CHEST PORTABLE on DOS: 09/03/21 IMPRESSION: Heart appears normal in size. The lungs appear clear without focal airspace opacity, effusion, or pn eumothorax
[2025-03-22 02:40] LABS: Glucose 287 mg/dL (74-106)
--- NOTE | 2025-03-22 05:54 | ECG ---
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
[2025-03-22 09:01] LABS: Urine Protein, UAD Negative (Negative)
[2025-03-22] MEDS ORDERED: ONDANSETRON HCL 4 MG/2 ML VIAL IV PRN (12:15)
[2025-03-22] MEDS ORDERED: ACETAMINOPHEN 325 MG TAB PO PRN (12:15)
--- NOTE | 2025-03-22 13:01 | ECG ---
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
--- NOTE | 2025-03-22 13:03 | DVH ---
EXAM: CT CT AB PEL WO CON-NO ORAL OR IV HISTORY: Abdominal pain COMPARISON: Chest x-rays dated 03/22/2025 and 09/03/2021 TECHNIQUE: Helical CT images of the abdomen and pelvis were performed without IV contrast. Sagittal a nd coronal reformatted images were obtained. This CT exam was performed using one or more of the foll owing dose reduction techniques: Automated exposure control, adjustment of the mA and/or kv according to patient size, or the use of iterative reconstruction techniques. Radiation Dose: Abdomen/Pelvis: CTDIvol 16.01 mGy, DLP 827.69 mGy*cm. FINDINGS: CT abdomen: There are irregular opacities in the lung bases, greater on the right. There are small r ight and trace left pleural effusions. The heart is not enlarged. Hepatic margins are quite nodular. There is low to moderate volume upper abdominal ascites. Small gallstones accumulate in the dependen t portion of the gallbladder. The noncontrast spleen, pancreas, and adrenal glands are unremarkable. There subcentimeter bilateral renal nonobstructing calculi. No abdominal aortic aneurysm. The left re nal vein is retroaortic. There is a moderate sized fatty umbilical hernia. CT pelvis: No abnormal bowel dilatation or free air. There is low to moderate volume pelvic ascites. There are descending and sigmoid colon diverticula without definite evidence of acute diverticulitis . The appendix is not dilated. The urinary bladder is unremarkable. Probable section scar. There is advanced lower lumbar degenerative disc disease and facet arthropathy. IMPRESSION: 1. Irregular opacities in the lung bases, small right and trace left pleural effusions. This appeara nce may be due to atelectasis, pneumonia, and/or scarring. 2. Nodular hepatic margins consistent with advanced cirrhosis. There is associated low to moderate vo lume abdominopelvic ascites. 3. Cholelithiasis. 4. Nonobstructing bilateral nephrolithiasis. 5. Colonic diverticulosis without evidence of acute diverticulitis. 6. Advanced lower lumbar degenerative disc disease and facet arthropathy. 7. No evidence of bowel obstruction, acute appendicitis, or other acute process in the abdomen or pel vis.
[2025-03-22] MEDS: MORPHINE SULFATE INJ 2 MG/ml SYRG IM ONE (13:06)
[2025-03-22] MEDS: SODIUM CHLOR 0.9% PF (SALINE LOCK) 10ML VIAL/SYR IV SCH (14:23)
[2025-03-22] MEDS: AZITHROMYCIN 250 MG TAB PO ONE (14:23)
[2025-03-22] MEDS: cefTRIAXone 1GM/50ML D5W 50 ML IV ONE (14:23)
[2025-03-22] MEDS: KETOROLAC TROMETH 30 MG/ML 1ML VIAL IV ONE (16:55)
--- NOTE | 2025-03-22 19:25 | DVHHPRES ---
History of Present Illness Resident Creating Document: BLAIRE IS[place] History of Present Illness Patient is a 74-year-old female with prior medical history of liver cirrhosis, hypertension, prediabetes, and GERD arrived via ambulance to the ED with chief complaint of sudden lower abdominal pain that began after having dinner with her daughter, that generalized and included the past and left arm, pain is described as intermittent sharp pressure, with intensity of 4/10, aggravated by deep inhalation and is associated with nausea, diaphoresis, and shortness of breath. Patient denied fever, chills, vomiting, cough, dizziness, and palpitations. On evaluation in the ED, she presented chest wall tenderness, abdominal pain when trying to sit up, and abdominal pain to palpation. Twelve lead EKG done in the ED showed sinus rhythm and troponins negative. Labs significant for WBC of 4, hemoglobin 11.6, and platelets of 37. Chest x-ray shows lungs appear clear without focal airspace opacity, effusion or pneumothorax. Patient admitted for further monitoring and workup. On admission, abdominal CT showed opacities in the lung bases, greater on the right with small right and trace left pleural effusions suggestive of atelectasis or pneumonia. For this reason, she is started on IV azithromycin and IV ceftriaxone possible pneumonia. Cardiovascular: HTN GI: GERD Hepatobiliary: Cirrhosis Grav: 4 Para: 4 Past Medical History Prior medical history of: -prediabetes -hypertension, noncompliant with medication -GERD -liver cirrhosis Past Surgical History: Other (Endoscopy: 12/2024) Family History: Cancer (Throat cancer in sister), DM (Mother and Six sisters) Smoke: No ALCOHOL: none Drugs: None Lives: with Family Domestic Violence: Neg Review of Systems Constitutional: Yes: Other (Dizziness) ENT: Other (Dry mouth) Gastrointestinal: Abdominal Pain Musculoskeletal: arm pain Allergies: Coded Allergies: NO KNOWN ALLERGIES (Unverified , 09/03/21) Medications Current Medications Medications Dose Ordered Sig/Giuliana Route Start Time Stop Time Status Last Admin Dose Admin Sodium Chloride 10 ml Q8HR IV 03/22/25 14:00 03/22/25 14:23 10 ML Ondansetron HCl 4 mg Q4HP PRN IV 03/22/25 12:15 Pantoprazole Sodium 40 mg DAILY PO 03/23/25 10:00 Ceftriaxone Sodium 50 ml @ 100 mls/hr DAILY@09 IV 03/23/25 09:00 Azithromycin 500 mg DAILY PO 03/23/25 10:00 Exam Vital Signs Vital Signs Date Time Temp Pulse Resp B/P (MAP) Pulse Ox O2 Delivery O2 Flow Rate FiO2 03/22/25 16:48 97.7 78 16 116/69 (85) 98 97.7 03/22/25 15:27 Room Air* 0 21 Exam General: The patient alert and oriented in person place and time. Patient following commands HEENT: Normocephalic, atraumatic, dry mucous membrane Respiratory/pulmonary: Chest wall pain on palpation. Clear lungs bilaterally, vesicular murmurs present in almost all lung blakely, no associated crackles or wheezes. Cardiovascular: S1, normal S2, no murmurs Abdomen: Abdomen nondistended, pain to palpation lower abdominal quadrant, patient has difficult time sitting up due to lower abdominal pain, no palpable masses. Extremities: there is no peripheral edema present at the lower extremities. Peripheral pulses 3+ radial right, 3+ radials soft. 3+ dorsalis pedis right. 3+ dorsalis pedis left Skin: No rashes or pruritus Neurological: Intact cranial nerves with no focal neurologic deficits Labs/Xrays Labs Test 03/22/25 08:00 03/22/25 03:00 03/22/25 02:01 Range/Units Urine Color Yellow Yellow Urine Clarity Clear Clear Urine pH 6.0 5.0-9.0 Urine Specific [place] 1.026 1.001-1.035 Urine Protein Negative Negative Urine Ketones Negative Negative Urine Blood Negative Negative /uL Urine Nitrite Negative Negative Urine Bilirubin Negative Negative Urine Urobilinogen Normal Negative mg/dL Urine Leukocyte Esterase Negative Negative /uL Urine RBC 1 0 - 4 /hpf Urine Microscopic WBC 2 0-5 /HPF Urine Squamous Epithelial Cells Few <5 /hpf Urine Bacteria None seen None Seen /hpf Urine Mucus Few None Seen Urine Glucose 4+ H Normal mg/dL Troponin I High Sensitivity < 3 L </=34 ng/L Lipase 47 12-53 U/L White Blood Count 4.0 L 4.4-10.8 10^3/uL Red Blood Count 3.45 L 4.0-5.20 10^6/uL Hemoglobin 11.6 L 12.2-16.2 g/dL Hematocrit 33.4 L 36.0-46.0 % Mean Corpuscular Volume 96.7 80.0-100.0 fL Mean Corpuscular Hemoglobin 33.6 H 28.0-32.0 pg Mean Corpuscular Hemoglobin Concent 34.7 32.0-36.0 g/dL Red Cell Distribution Width 13.8 11.8-14.3 % Platelet Count 37 L 140-450 10^3/uL Mean Platelet Volume 10.4 6.9-10.8 fL Neutrophils (%) (Auto) 82.5 H 37.0-80.0 % Lymphocytes (%) (Auto) 10.4 10.0-50.0 % Monocytes (%) (Auto) 6.7 0.0-12.0 % Eosinophils (%) (Auto) 0.2 0.0-7.0 % Basophils (%) (Auto) 0.2 0.0-2.0 % Neutrophils # (Auto) 3.3 1.6-8.6 10 ^3/uL Lymphocytes # (Auto) 0.4 0.4-5.4 10 ^3/uL Monocytes # (Auto) 0.3 0-1.3 10 ^3/uL Eosinophils # (Auto) 0 0-0.8 10 ^3/uL Basophils # (Auto) 0 0-0.2 10 ^3/uL Nucleated Red Blood Cells 0.0 % Sodium Level 139 136-145 mmol/L Potassium Level 4.1 3.5-5.1 mmol/L Chloride Level 107 98-107 mmol/L Carbon Dioxide Level 26 20-31 mmol/L Anion Gap 6 5-15 Blood Urea Nitrogen 14 9-23 mg/dL Creatinine 0.53 L 0.550-1.02 mg/dL Glomerular Filtration Rate Calc 98 >90 mL/min BUN/Creatinine Ratio 26.4 H 10.0-20.0 Serum Glucose 287 H 74-106 mg/dL Calcium Level 8.9 8.7-10.4 mg/dL Assessment/Plan Assessment/Plan Pneumonia, likely Gram-positive/Gram-negative -started on p.o. azithromycin -started on IV ceftriaxone -CT abdomen/pelvis: Irregular opacities in the lung bases, small right and trace left pleural effusions. This appearance may be due to atelectasis, pneumonia, and/or scarring. Acute chest pain, ruled out ACS -Likely due to possible pneumonia GERD -Protonix PO 40 mg daily Abdominal pain, possibly due to constipation -Lactulose PO 30 mg once Liver cirrhosis Thrombocytopenia likely due to liver cirrhosis Cholelithiasis Bilateral nephrolithiasis Colonic Diverticulosis without diverticulitis Anemia, normocytic -likely due to liver disease DVT prophylaxis with enoxaparin not recommended due to low platelets, DVT prophylaxis with SCD instead. Plan discussed with Dr. Jang. Goals of care discussed with patient for 25 minutes. Full code. Plan discussed with: Patient My Orders Orders - BLAIRE [place] RESIDENT Procedure Category Date Status Time Admit ADMIT 03/22/25 Transmitted 12:12 Code Status CODE 03/22/25 Transmitted 12:12 Sodium Chloride Lock PHA 03/22/25 In Process (Saline Lock Ns) 14:00 Ondansetron Hcl PHA 03/22/25 In Process (Zofran) 12:15 Complete Blood Count LAB 03/23/25 Verified 04:00 Comprehensive LAB 03/23/25 Verified Metabolic Panel 04:00 Notify Of Changes KRISTOPHER 03/22/25 In Process From Base 12:12 Ct Ab Pel Wo Con-No CT 03/22/25 Resulted Oral Or Iv 12:21 Pantoprazole Tablet PHA 03/23/25 In Process (Protonix Tablet) 10:00 Date of Service: Mar 22, 2025 Billing Provider: PB JANG MD Common Visit Codes: 50917-[id number] INP/OBS CARE (HIGH) BLAIRE ISRAEL RESIDENT Mar 22, 2025 19:25 PB JANG MD Mar 23, 2025 12:31
[2025-03-22] MEDS ORDERED: DEXTROSE (50%) 50ML SYRG IV PRN (20:15)
[2025-03-22] MEDS: ACCU-CHEK COMFORT CURVE STRIP VI SCH (21:52)
[2025-03-22] MEDS: LACTULOSE 20Gm/30ML SOLN PO ONE (21:52)
[2025-03-22] MEDS: InsuLIN REG 1unit/0.01ml Soln (100units/ml) SC SCH (21:52)
[2025-03-23 01:00] VITALS: BP 115/69; PULSE 96; RESP 18; TEMP 97.7; O2SAT 95
[2025-03-23 05:00] VITALS: BP 110/63; PULSE 86; RESP 18; TEMP 98; O2SAT 96
[2025-03-23 06:48] LABS: Hemoglobin 10.1 g/dL (12.2-16.2)
[2025-03-23 06:51] LABS: Hematocrit 28.5 % (36.0-46.0); Mean Corpuscular Hemoglobin 33.8 pg (28.0-32.0); Mean Corpuscular Volume 95.5 fL (80.0-100.0); Nucleated Red Blood Cells % 0.1 %
[2025-03-23 07:04] LABS: Anion Gap 8 (5-15); BUN/Creatinine Ratio 31.6 (10.0-20.0); Blood Urea Nitrogen 12 mg/dL (9-23); Carbon Dioxide 22 mmol/L (20-31); Potassium 4.1 mmol/L (3.5-5.1); Sodium 138 mmol/L (136-145)
[2025-03-23 07:09] LABS: Alanine Aminotransferase 44 U/L (7-40); Albumin 2.6 g/dL (3.2-4.8); Alkaline Phosphatase 169 U/L (46-116); Bilirubin, Total 1.9 mg/dL (0.2-1.0); Calcium 8.3 mg/dL (8.7-10.4); Chloride 108 mmol/L (98-107); Glucose 119 mg/dL (74-106); Total Protein 5.5 g/dL (5.7-8.2)
[2025-03-23] MEDS: POLYETHYLENE GLYCOL 17 GM PWDR PO SCH (08:03)
[2025-03-23] MEDS: AZITHROMYCIN 250 MG TAB PO SCH (08:04)
[2025-03-23] MEDS: PANTOPRAZOLE 40 MG TAB PO SCH (08:04)
[2025-03-23] MEDS: cefTRIAXone 1GM/50ML D5W 50 ML IV SCH (08:05)
[2025-03-23 09:00] VITALS: BP 134/86; PULSE 80; RESP 16; TEMP 98.2; O2SAT 98
[2025-03-23] MEDS ORDERED: LEVO750T40 PO (11:13)
[2025-03-23 12:42] VITALS: BP 116/67; PULSE 80; RESP 16; TEMP 98; O2SAT 98
[2025-03-23 12:46] VITALS: TEMP 36.7
--- NOTE | 2025-03-23 16:43 | DVHDSRES ---
Discharge Summary Date of Admission Resident Creating Document: BLAIRE ISRAEL RESIDENT Mar 22, 2025 at 12:12 Date of Discharge: Mar 23, 2025 Labs/Diagnostic Data: Laboratory Results Test 03/23/25 11:49 03/23/25 05:39 03/22/25 08:00 03/22/25 03:00 POC Glucose 138 mg/dl (70-106) White Blood Count 3.0 10^3/uL (4.4-10.8) Red Blood Count 2.99 10^6/uL (4.0-5.20) Hemoglobin 10.1 g/dL (12.2-16.2) Hematocrit 28.5 % (36.0-46.0) Mean Corpuscular Volume 95.5 fL (80.0-100.0) Mean Corpuscular Hemoglobin 33.8 pg (28.0-32.0) Mean Corpuscular Hemoglobin Concent 35.4 g/dL (32.0-36.0) Red Cell Distribution Width 14.1 % (11.8-14.3) Platelet Count 30 10^3/uL (140-450) Mean Platelet Volume 10.5 fL (6.9-10.8) Neutrophils (%) (Auto) 53.2 % (37.0-80.0) Lymphocytes (%) (Auto) 34.6 % (10.0-50.0) Monocytes (%) (Auto) 10.2 % (0.0-12.0) Eosinophils (%) (Auto) 1.6 % (0.0-7.0) Basophils (%) (Auto) 0.4 % (0.0-2.0) Neutrophils # (Auto) 1.6 10 ^3/uL (1.6-8.6) Lymphocytes # (Auto) 1.0 10 ^3/uL (0.4-5.4) Monocytes # (Auto) 0.3 10 ^3/uL (0-1.3) Eosinophils # (Auto) 0 10 ^3/uL (0-0.8) Basophils # (Auto) 0 10 ^3/uL (0-0.2) Nucleated Red Blood Cells 0.1 % Platelet Estimate Decreased Large Platelets Few Sodium Level 138 mmol/L (136-145) Potassium Level 4.1 mmol/L (3.5-5.1) Chloride Level 108 mmol/L (98-107) Carbon Dioxide Level 22 mmol/L (20-31) Anion Gap 8 (5-15) Blood Urea Nitrogen 12 mg/dL (9-23) Creatinine 0.38 mg/dL (0.550-1.02) Glomerular Filtration Rate Calc 106 mL/min (>90) BUN/Creatinine Ratio 31.6 (10.0-20.0) Serum Glucose 119 mg/dL (74-106) Calcium Level 8.3 mg/dL (8.7-10.4) Total Bilirubin 1.9 mg/dL (0.2-1.0) Aspartate Amino Transferase (AST) 64 U/L (13-40) Alanine Aminotransferase (ALT) 44 U/L (7-40) Alkaline Phosphatase 169 U/L (46-116) Total Protein 5.5 g/dL (5.7-8.2) Albumin 2.6 g/dL (3.2-4.8) Urine Color Yellow (Yellow) Urine Clarity Clear (Clear) Urine pH 6.0 (5.0-9.0) Urine Specific [place] 1.026 (1.001-1.035) Urine Protein Negative (Negative) Urine Ketones Negative (Negative) Urine Blood Negative /uL (Negative) Urine Nitrite Negative (Negative) Urine Bilirubin Negative (Negative) Urine Urobilinogen Normal mg/dL (Negative) Urine Leukocyte Esterase Negative /uL (Negative) Urine RBC 1 /hpf (0 - 4) Urine Microscopic WBC 2 /HPF (0-5) Urine Squamous Epithelial Cells Few /hpf (<5) Urine Bacteria None seen /hpf (None Seen) Urine Mucus Few (None Seen) Urine Glucose 4+ mg/dL (Normal) Troponin I High Sensitivity < 3 ng/L (</=34) Lipase 47 U/L (12-53) Other Laboratory Tests 03/23/25 05:39 Brief Hx & Hospital Course: Patient is a 74-year-old female with prior medical history of liver cirrhosis, hypertension, prediabetes, and GERD arrived via ambulance to the ED with chief complaint of sudden lower abdominal pain that began after having dinner with her daughter, that generalized and included the past and left arm, pain is described as intermittent sharp pressure, with intensity of 4/10, aggravated by deep inhalation and is associated with nausea, diaphoresis, and shortness of breath. Patient denied fever, chills, vomiting, cough, dizziness, and palpitations. On evaluation in the ED, she presented chest wall tenderness, abdominal pain when trying to sit up, and abdominal pain to palpation. Twelve lead EKG done in the ED showed sinus rhythm and troponins negative. Labs significant for WBC of 4, hemoglobin 11.6, and platelets of 37. Chest x-ray shows lungs appear clear without focal airspace opacity, effusion or pneumothorax. Patient admitted for further monitoring and workup. On admission, abdominal CT showed opacities in the lung bases, greater on the right with small right and trace left pleural effusions suggestive of atelectasis or pneumonia. For this reason, she is started on IV azithromycin and IV ceftriaxone possible pneumonia. Positional she was started on sliding scale insulin diabetes diet for glycemic control and p.o. lactulose for constipation. On evaluation today, patient stated she felt better, slept well, was eating, but was constipated. She denied chest pain, abdominal pain, dizziness, fever, and cough. Patient was considered stable to discharge home with p.o. levofloxacin and orders follow-up with her PCP in 1-2 weeks. Operations or Procedures CHEST RADIOGRAPH Indication: chest pain Technique: Single frontal view of the chest was obtained Comparison: CHEST PORTABLE on DOS: 09/03/21 IMPRESSION: Heart appears normal in size. The lungs appear clear without focal airspace opacity, effusion, or pneumothorax EXAM: CT CT AB PEL WO CON-NO ORAL OR IV HISTORY: Abdominal pain COMPARISON: Chest x-rays dated 03/22/2025 and 09/03/2021 TECHNIQUE: Helical CT images of the abdomen and pelvis were performed without IV contrast. Sagittal and coronal reformatted images were obtained. This CT exam was performed using one or more of the following dose reduction techniques: Automated exposure control, adjustment of the mA and/or kv according to patient size, or the use of iterative reconstruction techniques. Radiation Dose: Abdomen/Pelvis: CTDIvol 16.01 mGy, DLP 827.69 mGy*cm. FINDINGS: CT abdomen: There are irregular opacities in the lung bases, greater on the right. There are small right and trace left pleural effusions. The heart is not enlarged. Hepatic margins are quite nodular. There is low to moderate volume upper abdominal ascites. Small gallstones accumulate in the dependent portion of the gallbladder. The noncontrast spleen, pancreas, and adrenal glands are unremarkable. There subcentimeter bilateral renal nonobstructing calculi. No abdominal aortic aneurysm. The left renal vein is retroaortic. There is a moderate sized fatty umbilical hernia. CT pelvis: No abnormal bowel dilatation or free air. There is low to moderate volume pelvic ascites. There are descending and sigmoid colon diverticula without definite evidence of acute diverticulitis. The appendix is not dilated. The urinary bladder is unremarkable. Probable section scar. There is advanced lower lumbar degenerative disc disease and facet arthropathy. IMPRESSION: 1. Irregular opacities in the lung bases, small right and trace left pleural effusions. This appearance may be due to atelectasis, pneumonia, and/or scarring. 2. Nodular hepatic margins consistent with advanced cirrhosis. There is associated low to moderate volume abdominopelvic ascites. 3. Cholelithiasis. 4. Nonobstructing bilateral nephrolithiasis. 5. Colonic diverticulosis without evidence of acute diverticulitis. 6. Advanced lower lumbar degenerative disc disease and facet arthropathy. 7. No evidence of bowel obstruction, acute appendicitis, or other acute process in the abdomen or pelvis. Condition at Discharge: Stable Final Diagnosis/Problems List Pneumonia, likely Gram-positive/Gram-negative Acute chest pain, ruled out ACS Abdominal pain, possibly due to constipation sign GERD Liver Cirrhosis Cholelithiasis Bilateral nephrolithiasis Colonic Diverticulosis without diverticulitis Anemia, normocytic, likely of chronic disease Chronic thrombocytopenia Discharge Disposition: Home Discharge Instruct/Medications Diet: Consistent carbohydrate, Cardiac 2g Na,low cholest Activity: No Restrictions, As Tolerated Follow Up/Referral: Follow up with D/C clinic in 1-2 weeks Medications: As per EMR Scheduled Acetaminophen (Acetaminophen), 500 MG PO Q6HPRN Cholecalciferol (Vitamin D3), 1 TAB PO DAILY, (Reported) Cyanocobalamin (Vitamin B12), 100 MCG PO DAILY, (Reported) Levofloxacin Hemihydrate (Levofloxacin), 1 TAB PO DAILY Discharge Statement: "Patient was advised to return to the ER or call 911 if any headaches, dizziness, shortness of breath, chest pain, abdominal pain, bleeding, fevers, or worsening of medical condition. Patient was counseled about treatment plan, medications, possible side effects, patientverbalized understanding. All questions were answered to the best of my ability. This discharge took greater then 30 minutes in planning, reviewing documentation, counseling the patient, and discussing with other team members." ASSESSMENT ASSESSMENT Assessment Pneumonia Date of Service: Mar 23, 2025 Billing Provider: PB JANG MD Common Visit Codes: 48273-XPZ/OBS DISCH DAY >30min BLAIRE ISRAEL RESIDENT Mar 23, 2025 16:42 PB JANG MD Mar 24, 2025 16:56
== END 2025-03-23 14:36 | disposition home or self-care (01) | DRG 391 ==
LOC: EDBD 01:27 → ER 01:27 → OVERFLOW 12:12 → WEST WING 15:04
PROVIDERS: ATTEND Emergency Medicine
DX: K59.00 Constipation, unspecified (principal); J15.69 Pneumonia due to other Gram-negative bacteria; J15.9 Unspecified bacterial pneumonia; K21.9 Gastro-esophageal reflux disease without esophagitis; K74.60 Unspecified cirrhosis of liver; N20.0 Calculus of kidney; K57.30 Diverticulosis of large intestine without perforation or abscess without bleeding; D69.6 Thrombocytopenia, unspecified; K80.20 Calculus of gallbladder without cholecystitis without obstruction; D63.8 Anemia in other chronic diseases classified elsewhere; Z79.899 Other long term (current) drug therapy
CPT/HCPCS: 36415; 71045; 74176; 80048; 80053; 81001; 82962; 83690; 84484; 85025; 93005; 96365; 96372; G0378; J1815; J1885

== ENCOUNTER 2025-08-29 11:03 | Outpatient (CLI) | payer OTHER ==
[~2025-08-29 11:03] MED LIST changes: +LEVO750T40 PO
[2025-08-29 11:30] LABS: Hemoglobin 13.9 g/dL (12.2-16.2); Mean Corpuscular Volume 98.1 fL (80.0-100.0); Nucleated Red Blood Cells % 0.2 %
[2025-08-29 11:32] LABS: Hematocrit 40.2 % (36.0-46.0); Mean Corpuscular Hemoglobin 34.0 pg (28.0-32.0)
[2025-08-29 11:33] LABS: Urine Protein, UAD Negative (Negative)
[2025-08-29 11:57] LABS: Albumin 3.2 g/dL (3.2-4.8); Anion Gap 7 (5-15); BUN/Creatinine Ratio 14.8 (10.0-20.0); Calcium 8.9 mg/dL (8.7-10.4); Carbon Dioxide 26 mmol/L (20-31); Chloride 107 mmol/L (98-107); Cholesterol 142 mg/dL (< 200); Glucose 100 mg/dL (74-106); HDL Cholesterol 41 mg/dL (40-59); Potassium 4.6 mmol/L (3.5-5.1); Sodium 140 mmol/L (136-145); Total Protein 7.1 g/dL (5.7-8.2); Triglycerides 80 mg/dL (< 150)
[2025-08-29 12:00] LABS: Thyroid Stimulating Hormone 1.69 uIU/mL (0.55-4.78)
[2025-08-29 12:02] LABS: Alanine Aminotransferase 64 U/L (7-40); Alkaline Phosphatase 213 U/L (46-116); Bilirubin, Total 2.0 mg/dL (0.2-1.0); Blood Urea Nitrogen 8 mg/dL (9-23)
== END 2025-08-29 17:00 | disposition home or self-care (01) ==
LOC: LAB 11:03
PROVIDERS: ATTEND Nurse Practitioner Family
DX: C22.0 Liver cell carcinoma (principal); E78.5 Hyperlipidemia, unspecified
CPT/HCPCS: 36415; 80053; 80061; 81001; 82105; 83036; 83615; 84443; 85025

== ENCOUNTER 2025-09-08 11:54 | Inpatient (IN) | payer OTHER ==
[~2025-09-08] VITALS: Ht 144.8 cm; Wt 75.2 kg
--- NOTE | 2025-09-08 13:09 | ED.PDOC ---
GI ASSESSMENT HPI Comments This is a 74 year old female presenting to the ED with chief complaint of abdominal pain. Patient reports that she has been experiencing diffuse abdominal pain with associated nausea, vomiting, constipation, and dizziness since yesterday. Patient's son relays patient has history of liver cirrhosis and gallstones. Patient denies any diarrhea, fever, chills, melena, or hematemesis. Chief Complaint: Abdominal Pain Time Seen by MD: 13:06 Primary Care Provider: CUMMINS Reviewed Notes: Nurses Notes, Medications, Allergies Allergies: Coded Allergies: NO KNOWN ALLERGIES (Unverified , 09/03/21) Home Meds Active Scripts Levofloxacin Hemihydrate (LEVOFLOXACIN) 750 Mg Tab, 1 TAB PO DAILY for 5 Days, #5 TAB Prov:ADRIENNE FERGUSON 03/23/25 Acetaminophen (Acetaminophen) 500 Mg Tab, 500 MG PO Q6HPRN, #30 TAB 0 Refills Prov:JEZ CAMACHO 09/07/23 Reported Medications Cyanocobalamin (Vitamin B12) 100 Mcg Tab, 100 MCG PO DAILY, TAB 09/04/21 Cholecalciferol (VITAMIN D3) 2,000 Unit Tab, 1 TAB PO DAILY, #30 TAB 5 Refills 09/04/21 Information Source: Patient Mode of Arrival: Wheelchair Timing: Days Duration: Since onset Prehospital treatment: None Quality: Aching Stool: Impaction Severity: Moderate Recent: None Recent Hx of: None Pain Location: Diffuse Modifying Factors: Nothing Associated sign and symptoms: Nausea, Vomiting, Constipation, Abdominal Pain Past Medical History PAST MEDICAL HISTORY: Gallstones, Liver Surgical History: Denies all surgeries ELECTRIC METER TESTER History: No Pertinent ELECTRIC METER TESTER History Family History Family History: Reviewed,noncontributory to illness Social History Smoker: Non-Smoker Alcohol: Denies ETOH Use Drugs: Denies Drug Use Lives In: Home Constitutional: denies: chills, diaphoresis, fatigue, fever, malaise, sweats, weakness, others EENTM: denies: blurred vision, double vision, ear bleeding, ear discharge, ear drainage, ear pain, ear ringing, eye pain, eye redness, hearing loss, mouth pain, mouth swelling, nasal discharge, nose bleeding, nose congestion, nose pain, photophobia, tearing, throat pain, throat swelling, voice changes, others Respiratory: denies: cough, hemoptysis, orthopnea, SOB at rest, shortness of breath, SOB with excertion, stridor, wheezing, others Cardiovascular: denies: chest pain, dizzy spells, diaphoresis, Dyspnea on exertion, edema, irregular heart beat, left arm pain, lightheadedness, palpitations, PND, syncope, others Gastrointestinal: reports: abdominal pain, constipated, nausea, vomiting; denies: abdomen distended, blood streaked bowels, diarrhea, dysphagia, difficulty swallowing, hematemesis, melena, poor appetite, poor fluid intake, rectal bleeding, rectal pain, others Genitourinary: denies: abnormal vagina bleeding, burning, dyspareunia, dysuria, flank pain, frequency, hematuria, incontinence, pain, , vagina discharge, urgency, others Neurological: reports: dizziness; denies: fainting, headache, left sided numbness, left sided weakness, numbness, paresthesia, pre-existing deficit, right sided numbness, right sided weakness, seizure, speech problems, tingling, tremors, weakness, others Musculoskeletal: denies: back pain, gout, joint pain, joint swelling, muscle pain, muscle stiffness, neck pain, others Integumetry: denies: bruises, change in color, change in hair/nails, dryness, laceration, lesions, lumps, rash, wounds, others Allergic/Immunocompromised: denies: Difficulty Healing, Frequent Infections, Hives, Itching, others Hematologic/Lymphatic: denies: anemia, blood clots, easy bleeding, easy bruising, swollen glands, others Endocrine: denies: excessive hunger, excessive sweating, excessive thirst, excessive urination, flushing, intolerance to cold, intolerance to heat, unexplained weight gain, unexplained weight loss, others Psychiatric: denies: anxiety, bipolar disorder, depression, hopeless, panic disorder, schizophrenia, sleepless, suicidal, others Physical Exam General Appearance: No Apparent Distress, Normal HEENT: Normal ENT Inspection, Pharynx Normal, TMs Normal Neck: Full Range of Motion, Non-Tender, Normal, Normal Inspection Respiratory: Chest Non-Tender, Lungs Clear, No Accessory Muscle Use, No Respiratory Distress, Normal Breath Sounds Cardiovascular: No Edema, No JVD, No Murmur, No Gallop, Normal Peripheral Pulses, Regular Rate/Rhythm Breast Exam: Deferred Gastrointestinal: No Organomegaly, No Pulsatile Mass, Normal Bowel Sounds, Soft, Tenderness (Diffuse abdominal tenderness) Genitalia: Deferred Pelvic: Deferred Rectal: Deferred Extremities: No calf tenderness, Normal capillary refill, Normal inspection, Normal range of motion, Non-tender, No pedal edema Musculoskeletal : Apperance: Normal Neurologic: Alert, supply and distribution manager II-XII nml as Tested, No Motor Deficits, Normal Affect, Normal Mood, No Sensory Deficits Cerebellar Function: Normal Reflexes: Normal Skin: Dry, Normal Color, Warm Lymphatic: No Adenopathy Was a procedure done? Was a procedure done?: No GI differential Dx Differential Diagnosis: Gastroenteritis, Hepatitis, PID, Porphyria, Urinary Obstruction, UTI, Urolithiasis, Dehydration, Electrolyte Imbalance, Food Pois oning, Hypovolemia X-Ray, Labs, Meds, VS Vital Signs Date Time Temp Pulse Resp B/P (MAP) Pulse Ox O2 Delivery O2 Flow Rate FiO2 09/08/25 14:42 98.8 105 17 98/58 (71) 98 98.8 09/08/25 14:04 97.8 99 18 112/66 (81) 98 97.8 09/08/25 12:05 97.7 113 12 109/66 98 97.7 Lab Test 09/08/25 14:03 09/08/25 13:41 09/08/25 13:04 Range/Units Troponin I High Sensitivity 3 L < 3 L </=34 ng/L Urine Color [place] H Yellow Urine Clarity Turbid H Clear Urine pH 5.5 5.0-9.0 Urine Specific [place] 1.021 1.001-1.035 Urine Protein 1+ H Negative Urine Ketones 1+ H Negative Urine Blood Negative Negative /uL Urine Nitrite Negative Negative Urine Bilirubin 1+ H Negative Urine Urobilinogen 2 H Negative mg/dL Urine Leukocyte Esterase 1+ Negative /uL Urine RBC 2 0 - 4 /hpf Urine Microscopic WBC 12 H 0-5 /HPF Urine Squamous Epithelial Cells Mod <5 /hpf Urine Bacteria Few H None Seen /hpf Urine Hyaline Casts Many 0 - 2 /lpf Urine Mucus Few None Seen Urine Glucose Trace Normal mg/dL White Blood Count 5.6 4.4-10.8 10^3/uL Red Blood Count 3.16 L 4.0-5.20 10^6/uL Hemoglobin 10.7 L 12.2-16.2 g/dL Hematocrit 31.2 L 36.0-46.0 % Mean Corpuscular Volume 98.9 80.0-100.0 fL Mean Corpuscular Hemoglobin 34.0 H 28.0-32.0 pg Mean Corpuscular Hemoglobin Concent 34.4 32.0-36.0 g/dL Red Cell Distribution Width 14.7 H 11.8-14.3 % Platelet Count 72 L 140-450 10^3/uL Mean Platelet Volume 10.3 6.9-10.8 fL Neutrophils (%) (Auto) 79.6 37.0-80.0 % Lymphocytes (%) (Auto) 13.8 10.0-50.0 % Monocytes (%) (Auto) 6.3 0.0-12.0 % Eosinophils (%) (Auto) 0.1 0.0-7.0 % Basophils (%) (Auto) 0.2 0.0-2.0 % Neutrophils # (Auto) 4.5 1.6-8.6 10 ^3/uL Lymphocytes # (Auto) 0.8 0.4-5.4 10 ^3/uL Monocytes # (Auto) 0.4 0-1.3 10 ^3/uL Eosinophils # (Auto) 0 0-0.8 10 ^3/uL Basophils # (Auto) 0 0-0.2 10 ^3/uL Nucleated Red Blood Cells 0.2 % Sodium Level 137 136-145 mmol/L Potassium Level 5.6 *H 3.5-5.1 mmol/L Chloride Level 105 98-107 mmol/L Carbon Dioxide Level 20 20-31 mmol/L Anion Gap 12 5-15 Blood Urea Nitrogen 23 9-23 mg/dL Creatinine 0.84 0.550-1.02 mg/dL Glomerular Filtration Rate Calc 74 >90 mL/min BUN/Creatinine Ratio 27.4 H 10.0-20.0 Serum Glucose 170 H 74-106 mg/dL Calcium Level 8.7 8.7-10.4 mg/dL [address] [address] Ph: [phone] DIAGNOSTIC IMAGING Diagnostic Imaging Report : [id number] Signed PATIENT: FIDELIA JEFFREY RACCT: [id number] UNIT: [id number] : 1950 LOC: ER ROOM / BED: / AGE / SEX: 74 / F ADM STATUS: REG ER SERVICE 1250 ORDERING PHYSICIAN: ANNIE HARRISON MD PROCEDURE(s): CXRP - CHEST PORTABLE REASON: abdominal pain ORDER NUMBER(s): [id number], ACCESSION NUMBER(s): [id number] EXAM: XY CHEST PORTABLE CLINICAL HISTORY: abdominal pain TECHNIQUE: Single frontal view of the chest WID: COMPARISON: XY CHEST PORTABLE on DOS: 03/22/25 FINDINGS: Lines and tubes: None Chest: The heart size and pulmonary vasculature is within normal limits. Calcified plaque projects over the aortic arch. No pleural effusion, pneumothorax, or consolidation. Linear scarring or atelectasis in the left lung base. er The osseous structures are grossly intact. Multilevel thoracic spondylosis. IMPRESSION: 1. No acute cardiopulmonary abnormality. ATED BY: STEVE SOLORIO MD DICTATED DATE/TIME: 09/08/251336 SIGNED BY: STEVE SOLORIO MD SIGNED DATE/TIME: 09/08/25 133 CC: Images Reviewed?: Images reviewed and evaluated by me Time of 1ST Reevaluation: 14:03 Reevaluation 1ST: Unchanged Patient Education/Counseling: Diagnosis, Treatment Family Education/Counseling: Diagnosis, Treatment SEPSIS Sepsis Screen Date sepsis recognized/suspect: Sep 08, 2025 Time Sepsis recognized/suspect: 1205 Recent Procedure: No On Antibiotic Therapy: No Respiratory Rate >20: No Heart Rate >90: Yes Temp<36 C (96.8 F) or >38.3 C: No SBP <90 or MAP <65 mmHG: No New Acute Mental Status Change: No Is the patient on CPAP, BIPAP,: No Physician Orders Chest Portable (09/08/25 12:50) Electrocardigram (09/08/25 12:50) Electrocardigram (09/08/25 13:50) Electrocardigram (09/08/25 15:50) Calcium Gluc 1,000mg/50ml-Ns (09/08/25 16:30) Ct Ab Pel With Iv Con Only (09/08/25 16:16) Vital Signs Date Time Temp Pulse Resp B/P (MAP) Pulse Ox O2 Delivery O2 Flow Rate FiO2 09/08/25 14:42 98.8 105 17 98/58 (71) 98 98.8 09/08/25 14:04 97.8 99 18 112/66 (81) 98 97.8 09/08/25 12:05 97.7 113 12 109/66 98 97.7 Laboratory Tests Test 09/08/25 13:04 White Blood Count 5.6 10^3/uL (4.4-10.8) Departure 1 Departure Time of Disposition: 16:58 (Patient with intractable abdominal pain. Patient's labs and UA are benign. At we will admit patient for further workup and expert consultation) Impression: Primary Impression: Abdominal pain Additional Impression: Generalized weakness Disposition: ADMITTED INPATIENT Admit to: Med Surg Condition: Guarded Critical Care Note Critical Care Time?: No Stability Stability form required: No Heart Score Heart Score: Heart Score Response (Comments) Value History N/A 0 EKG N/A 0 Age N/A 0 Risk Factors N/A 0 Troponin N/A 0 Total 0 I personally scribed for ANNIE HARRISON MD ([email or web address]) on 09/08/25 at 13:09. Electronically submitted by Amos Hart ([email or web address]). I personally scribed for ANNIE HARRISON MD ([email or web address]) on 09/08/25 at 14:04. Electronically submitted by Amos Hart ([email or web address]). ANNIE HARRISON MD Sep 08, 2025 13:09
[2025-09-08 13:17] LABS: Hematocrit 31.2 % (36.0-46.0); Hemoglobin 10.7 g/dL (12.2-16.2); Mean Corpuscular Hemoglobin 34.0 pg (28.0-32.0); Mean Corpuscular Volume 98.9 fL (80.0-100.0); Nucleated Red Blood Cells % 0.2 %
[2025-09-08 13:25] LABS: Chloride 105 mmol/L (98-107); Sodium 137 mmol/L (136-145)
[2025-09-08 13:26] LABS: Anion Gap 12 (5-15); Carbon Dioxide 20 mmol/L (20-31)
[2025-09-08 13:27] LABS: Calcium 8.7 mg/dL (8.7-10.4)
[2025-09-08 13:31] LABS: BUN/Creatinine Ratio 27.4 (10.0-20.0); Blood Urea Nitrogen 23 mg/dL (9-23)
--- NOTE | 2025-09-08 13:39 | DVH ---
EXAM: XY CHEST PORTABLE CLINICAL HISTORY: abdominal pain TECHNIQUE: Single frontal view of the chest WID: COMPARISON: XY CHEST PORTABLE on DOS: 03/22/25 FINDINGS: Lines and tubes: None Chest: The heart size and pulmonary vasculature is within normal limits. Calcified plaque projects over the aortic arch. No pleural effusion, pneumothorax, or consolidation. Linear scarring or atelectasis in the left lung base. er The osseous structures are grossly intact. Multilevel thoracic spondylosis. IMPRESSION: 1. No acute cardiopulmonary abnormality.
[2025-09-08 14:07] LABS: Glucose 170 mg/dL (74-106)
[2025-09-08 14:09] LABS: Potassium 5.6 mmol/L (3.5-5.1)
[2025-09-08 14:11] LABS: Urine Protein, UAD 1+ (Negative)
[2025-09-08 17:28] VITALS: PULSE 111; RESP 18; O2SAT 97
[2025-09-08] MEDS: IOHEXOL 300 MG/ML 100ML BOTTLE IJ ONE (18:34)
--- NOTE | 2025-09-08 19:54 | DVH ---
CLINICAL HISTORY: abdominal pain TECHNIQUE: CT of the abdomen and pelvis was performed with intravenous contrast. This exam was performed according to our departmental dose optimization program. Up-to-date CT equipment and radiation dose reduction techniques are utilized as appropriate. CTDIVol: 19.35 mGy DLP: 969.5 mGy-cm WID: COMPARISON: CT CT AB PEL WITH ORAL CON ONLY on DOS: 08/03/23 FINDINGS: Lower Thorax: Linear bibasilar scarring or atelectasis. Normal-sized heart. Gastroesophageal varices. Liver and Biliary system: Cirrhosis of the liver. There are multiple hypodense lesions in both lobes of the liver. There is a hyperenhancing heterogeneous mass off the left lobe of the liver segment 4 measuring 5.8 x 6.0 cm on series 2, image 20. The major portal veins are patent. Gallbladder is upper limits of normal caliber with suggestion of mild wall thickening. There is no biliary ductal dilatation. There are portosystemic collateral vessels. Spleen: Unremarkable. Adrenal Glands and Kidneys: Normal adrenal glands. No hydronephrosis or nephrolithiasis. There is a small cyst in the lower pole right kidney. Pancreas and Retroperitoneum: Mildly atrophic pancreas. Tiny sub 5 mm cystic lesion in the uncinate process of the pancreas on series 2, image 31. No retroperitoneal lymphadenopathy. Aorta and Major Vessels: Aortoiliac vessels are patent and normal caliber with mild mixed atherosclerotic plaque. Note is made of a retroaortic left renal vein. Bowel, Mesentery and Peritoneal space: Normal caliber small and large bowel. There is moderate ascites. There is mild Wall thickening of a long segment of ascending and transverse colon. Normal appendix. No free air or fluid collection. Pelvis: Urinary bladder is minimally distended. The uterus is globular configuration with suggestion of a fibroid measuring 5.1 cm on series 2, image 71. This causes the endometrium to be deviated to the right. Additional calcified fibroids in the uterus. There is a 2.7 cm cystic lesion in the right o vary on series 2, image 69. There is no pelvic lymphadenopathy. Abdominal wall and Osseous Structures: There is a small umbilical hernia containing ascites and portosystemic collateral vessels. Tiny sclerotic foci in the proximal femurs and pelvis likely bone islands. Chondrocalcinosis of the proximal femurs and pelvis. There is mild body wall edema. No destructive osseous lesion. There is bony demineralization. IMPRESSION: 1. Cirrhosis and portal hypertension with moderate ascites, portosystemic collateral vessels, and gastroesophageal varices. 2. Heterogeneously Enhancing mass off of segment 4 of the liver concerning for hepatocellular carcinoma. 3. Multiple additional small hypodense lesions in both lobes of the liver which can be followed up on surveillance imaging. 4. Mild wall thickening of the long segment of ascending and transverse colon which could be related to portal hypertension versus mild infectious or inflammatory colitis. 5. Fibroid uterus.
[2025-09-08 21:08] LABS: Chloride 104 mmol/L (98-107); Potassium 5.1 mmol/L (3.5-5.1)
[2025-09-08 21:09] LABS: Anion Gap 13 (5-15); Calcium 8.7 mg/dL (8.7-10.4)
[2025-09-08 21:14] LABS: BUN/Creatinine Ratio 20.7 (10.0-20.0); Blood Urea Nitrogen 17 mg/dL (9-23)
[2025-09-08 21:22] LABS: Carbon Dioxide 17 mmol/L (20-31); Glucose 154 mg/dL (74-106); Sodium 134 mmol/L (136-145)
[2025-09-08] MEDS ORDERED: ONDANSETRON HCL 4 MG/2 ML VIAL IV PRN (22:30)
[2025-09-08] MEDS: LACTULOSE 20Gm/30ML SOLN PO ONE (22:58)
[2025-09-08 22:59] LABS: Total Protein 6.3 g/dL (5.7-8.2)
[2025-09-08 23:04] LABS: Alanine Aminotransferase 60.0 U/L (7-40); Albumin 2.9 g/dL (3.2-4.8); Alkaline Phosphatase 156.0 U/L (46-116); Bilirubin, Total 2.3 mg/dL (0.2-1.0); Lipase 55.0 U/L (12-53)
[2025-09-08 23:05] LABS: INR 1.37 (0.9-1.15); Partial Thromboplastin Time 26.9 SEC (24.5-34.5); Prothrombin Time 14.1 sec (9.3-11.8)
[2025-09-08 23:22] VITALS: PULSE 100; RESP 15; O2SAT 98
[2025-09-08 23:23] LABS: Bilirubin, Direct 1.0 mg/dL (<0.3)
[2025-09-08] MEDS: CEPHALEXIN 250 MG CAP PO ONE (23:38)
[2025-09-08] MEDS: PANTOPRAZOLE 40 MG/10 ML VIAL INJ IV ONE (23:38)
[2025-09-08] MEDS: DEXTROSE (50%) 50ML SYRG IV ONE (23:38)
[2025-09-08] MEDS: SODIUM BICARB 8.4% 50Meq/50ml SYR Vial IV ONE (23:38)
--- NOTE | 2025-09-08 23:44 | DVH ---
INDICATION: RUQ pain, nausea, TECHNIQUE: Multiple real-time sonographic images were obtained of the right upper quadrant. COMPARISON: US ABDOMEN COMPLETE SONOGRAM on DOS: 03/09/25, US ABDOMEN COMPLETE SONOGRAM on DOS: 02/07/25, US LIVER on DOS: 12/24/22 FINDINGS: Liver: Normal in size measuring 12.4 cm with surface nodularity and coarsened echotexture. Hypodense mass again noted measuring up to 5.5 cm, better assessed on prior CT and MRI. Gallbladder: No stones, sludge, distention, or inflammatory changes. CBD: 0.3 cm, within normal limits. Pancreas: Partially obscured. Visualized portions Unremarkable. Right kidney: 9.4 cm. No stones or hydronephrosis. Free fluid: Small to moderate volume of ascites. IMPRESSION: No gallstones or acute cholecystitis. Cirrhotic appearing liver with underlying mass again noted. Small to moderate volume of ascites.
[2025-09-08] MEDS: SODIUM CHLORIDE 0.9% 500 ML IV ONE (23:54)
[2025-09-08] MEDS: CALCIUM GLUC 1,000mg/50ml-NS 50 ML IV ONE (23:59)
[2025-09-09] VITALS (8 sets, daily range): BP systolic 102–117; BP diastolic 54–80; PULSE 96–109; RESP 16–20; TEMP 97.6–98.6; O2SAT 95–100
[2025-09-09] MEDS: CALCIUM GLUC 1,000mg/50ml-NS 50 ML IV SCH (00:21)
[2025-09-09] MEDS: InsuLIN REG 1unit/0.01ml Soln (100units/ml) IV ONE (00:30)
[2025-09-09] MEDS: SODIUM CHLORIDE 0.9% 500 ML IV ONE (04:32)
--- NOTE | 2025-09-09 05:50 | DVHHPRES ---
History of Present Illness Resident Creating Document: JAZZY VENTURAANTOINE RESIDENT History of Present Illness Patient is a 74-year-old female presented to the hospital with a chief complaint of abdominal pain and nausea for the last 2 days. Patient reported that since the last 2 days she has been having epigastric/right upper quadrant/mid abdominal pain which is nonradiating, constant with intermittent episodes of sharp pain, not able to eat food and does not have an appetite, no positional variation, associated with the intractable nausea and patient had vomiting while she was in the ER which was mostly bile without any blood. She also reported of constipation on and off and last bowel movement was 2 days ago. Patient denied any shortness of breath, cough, fever, chills, no recent weight loss, bleeding per rectum or hematemesis, dysuria, frequency. Past medical history: Liver cirrhosis, gallstones Surgical history: Denies Social history: Patient denies smoking, alcohol, drug use Home medications: Spironolactone 50 mg, Lasix 20 mg daily, Carafate, lactulose Review of Systems Review of Systems Complains of nausea, few episodes of vomiting since she has been in the ER Passing flatus Pain in the epigastrium and in the right upper quadrant Allergies: Coded Allergies: NO KNOWN ALLERGIES (Unverified , 09/03/21) Medications Current Medications Medications Dose Ordered Sig/Giuliana Route Start Time Stop Time Status Last Admin Dose Admin Ceftriaxone Sodium 50 ml @ 100 mls/hr DAILY@09 IV 09/09/25 09:00 Lactulose 30 ml BID PO 09/09/25 10:00 Ondansetron HCl 4 mg Q6HPRN PRN IV 09/08/25 22:30 Pantoprazole Sodium 40 mg DAILY IV 09/09/25 10:00 Exam Vital Signs Vital Signs Date Time Temp Pulse Resp B/P (MAP) Pulse Ox O2 Delivery O2 Flow Rate FiO2 09/09/25 05:00 97.6 109 17 111/54 (73) 95 97.6 09/09/25 01:58 Room Air* 0 21 Exam Skin - Patients skin is warm and dry. HEENT - normocephalic, atraumatic, moist mucous membranes, minimal scleral icterus, mild conjunctival pallor. Neck - full ROM, no LAD, no JVD Pulmonary - B/L clear breath sounds without any wheezing, rales or stridor cardiovascular - regular S1,S2 heard, no added sounds, no murmurs appreciated. peripheral pulses normal radial 2+, pedal 2+. Trace bilateral lower extremity pitting edema GI - soft abdomen with a tenderness to palpation in the epigastrium, right upper quadrant with a likely positive Chamberlain's sign. no hepatospleenomegaly. Bowel sounds slightly hypoactive Neurological - Patient is A/O X 4 . Bilateral upper extremity strength 5/5, bilateral lower extremity strength 5/5, no facial droop, normal speech, no tremor, no sensory deficiets. Labs/Xrays Labs Test 09/09/25 01:53 09/08/25 22:43 09/08/25 20:54 09/08/25 14:03 Range/Units Potassium Level 4.6 3.5-5.1 mmol/L Prothrombin Time 14.1 H 9.3-11.8 sec Prothrombin Time INR 1.37 H 0.9-1.15 Activated Partial Thromboplast Time 26.9 24.5-34.5 SEC Sodium Level 134 L 136-145 mmol/L Chloride Level 104 98-107 mmol/L Carbon Dioxide Level 17 L 20-31 mmol/L Anion Gap 13 5-15 Blood Urea Nitrogen 17 9-23 mg/dL Creatinine 0.82 0.550-1.02 mg/dL Glomerular Filtration Rate Calc 76 >90 mL/min BUN/Creatinine Ratio 20.7 H 10.0-20.0 Serum Glucose 154 H 74-106 mg/dL Calcium Level 8.7 8.7-10.4 mg/dL Troponin I High Sensitivity 3 L </=34 ng/L Test 09/08/25 13:41 09/08/25 13:04 Range/Units Urine Color [place] H Yellow Urine Clarity Turbid H Clear Urine pH 5.5 5.0-9.0 Urine Specific [place] 1.021 1.001-1.035 Urine Protein 1+ H Negative Urine Ketones 1+ H Negative Urine Blood Negative Negative /uL Urine Nitrite Negative Negative Urine Bilirubin 1+ H Negative Urine Urobilinogen 2 H Negative mg/dL Urine Leukocyte Esterase 1+ Negative /uL Urine RBC 2 0 - 4 /hpf Urine Microscopic WBC 12 H 0-5 /HPF Urine Squamous Epithelial Cells Mod <5 /hpf Urine Bacteria Few H None Seen /hpf Urine Hyaline Casts Many 0 - 2 /lpf Urine Mucus Few None Seen Urine Glucose Trace Normal mg/dL White Blood Count 5.6 4.4-10.8 10^3/uL Red Blood Count 3.16 L 4.0-5.20 10^6/uL Hemoglobin 10.7 L 12.2-16.2 g/dL Hematocrit 31.2 L 36.0-46.0 % Mean Corpuscular Volume 98.9 80.0-100.0 fL Mean Corpuscular Hemoglobin 34.0 H 28.0-32.0 pg Mean Corpuscular Hemoglobin Concent 34.4 32.0-36.0 g/dL Red Cell Distribution Width 14.7 H 11.8-14.3 % Platelet Count 72 L 140-450 10^3/uL Mean Platelet Volume 10.3 6.9-10.8 fL Neutrophils (%) (Auto) 79.6 37.0-80.0 % Lymphocytes (%) (Auto) 13.8 10.0-50.0 % Monocytes (%) (Auto) 6.3 0.0-12.0 % Eosinophils (%) (Auto) 0.1 0.0-7.0 % Basophils (%) (Auto) 0.2 0.0-2.0 % Neutrophils # (Auto) 4.5 1.6-8.6 10 ^3/uL Lymphocytes # (Auto) 0.8 0.4-5.4 10 ^3/uL Monocytes # (Auto) 0.4 0-1.3 10 ^3/uL Eosinophils # (Auto) 0 0-0.8 10 ^3/uL Basophils # (Auto) 0 0-0.2 10 ^3/uL Nucleated Red Blood Cells 0.2 % Total Bilirubin 2.3 H 0.2-1.0 mg/dL Direct Bilirubin 1.0 H <0.3 mg/dL Aspartate Amino Transferase (AST) 82 H 13-40 U/L Alanine Aminotransferase (ALT) 60 H 7-40 U/L Alkaline Phosphatase 156 H 46-116 U/L Total Protein 6.3 5.7-8.2 g/dL Albumin 2.9 L 3.2-4.8 g/dL Lipase 55 H 12-53 U/L SEPSIS Sepsis Screen Date sepsis recognized/suspect: Sep 08, 2025 Time Sepsis recognized/suspect: 2321 Recent Procedure: No On Antibiotic Therapy: No Respiratory Rate >20: No Heart Rate >90: Yes Temp<36 C (96.8 F) or >38.3 C: No SBP <90 or MAP <65 mmHG: No New Acute Mental Status Change: No Is the patient on CPAP, BIPAP,: No Physician Orders Admit (09/08/25 22:16) Stat Ekg For Chest Pain (09/08/25 22:16) Notify Md Of Changes From Base (09/08/25 22:16) Gallbladder (09/08/25 22:16) Acute Hepatitis Panel (09/08/25 22:16) Ceftriaxone 1gm/50ml (Rocephin) (09/09/25 09:00) Lactulose Oral (09/09/25 10:00) Ondansetron Hcl (Zofran) (09/08/25 22:30) Clear Liq Diet (09/09/25 Breakfast) Stool Occult Blood (09/08/25 22:16) Pantoprazole (Protonix) (09/09/25 10:00) Complete Blood Count (09/09/25 04:00) Comprehensive Metabolic Panel (09/09/25 04:00) Hepatitis B Surface Antigen (09/09/25 02:00) Hepatitis C Antibody (09/09/25 02:00) Afp Serum Tumor Marker (09/09/25 04:00) Vital Signs Date Time Temp Pulse Resp B/P (MAP) Pulse Ox O2 Delivery O2 Flow Rate FiO2 09/09/25 05:00 97.6 109 17 111/54 (73) 95 97.6 09/09/25 01:58 97.7 107 17 116/70 (85) 99 97.7 09/09/25 01:58 107 17 99 Room Air* 0 21 09/08/25 23:22 100 15 98 Room Air* 0 21 09/08/25 23:22 97.8 100 15 103/47 (65) 98 97.8 09/08/25 21:51 98.1 112 18 113/63 (80) 99 98.1 Medications Medications Dose Ordered Sig/Giuliana Route Start Time Stop Time Status Last Admin Dose Admin Ceftriaxone Sodium 50 ml @ 100 mls/hr ONCE ONCE IV 09/08/25 22:30 09/08/25 22:59 DC 09/08/25 23:53 100 MLS/HR Cephalexin 500 mg ONCE ONCE PO 09/08/25 21:15 09/08/25 21:16 DC 09/08/25 23:38 500 MG Pantoprazole Sodium 40 mg ONCE ONCE IV 09/08/25 22:30 09/08/25 22:31 DC 09/08/25 23:38 40 MG Sodium Chloride 500 ml @ 500 mls/hr Q1H ONCE IV 09/08/25 22:30 09/08/25 23:29 DC 09/08/25 23:54 500 MLS/HR Sodium Chloride 500 ml @ 500 mls/hr Q1H ONCE IV 09/09/25 03:15 09/09/25 04:14 DC 09/09/25 04:32 500 MLS/HR Assessment/Plan Assessment/Plan Intractable nausea, vomiting Intractable abdominal pain Dehydration likely due to above Possible acute gastritis Possible cholecystitis Liver mass ?Hepatocellular Carcinoma h/o liver cirrhosis Liver cirrhosis MELD Na 16, child Brito B Portal hypertension with Gastroesophageal varices [id number] ascites Colitis ?Inflammatory Constipation Urinary tract infection Fibroid uterus Plan - CT abdomen pelvis with contrast reviewed - gallbladder ultrasound showed no gallstones or acute cholecystitis - acute hepatitis panel, afp pending - IV fluids since the patient is dehydrated and poor oral intake - IV ceftriaxone and metronidazole - Protonix - lactulose b.i.d. Goals of care discussed with the patient for over 21 minutes. Full code Time spent: 37 minutes Plan discussed with Dr. Vital Plan discussed with: Patient, Other (RN) My Orders Orders - LEAH VENTURA RESIDENT Procedure Category Date Status Time Admit ADMIT 09/08/25 Transmitted 22:16 Stat Ekg For Chest KRISTOPHER 09/08/25 In Process Pain 22:16 Notify Md Of Changes KRISTOPHER 09/08/25 In Process From Base 22:16 Gallbladder US 09/08/25 Resulted 22:16 Acute Hepatitis Panel LAB 09/08/25 In Process 22:16 Ceftriaxone 1gm/50ml PHA 09/09/25 In Process (Rocephin) 09:00 Lactulose Oral PHA 09/09/25 In Process 10:00 Ondansetron Hcl PHA 09/08/25 In Process (Zofran) 22:30 Clear Liq Diet DIET 09/09/25 Transmitted Breakfast Stool Occult Blood LAB 09/08/25 Logged 22:16 Pantoprazole PHA 09/09/25 In Process (Protonix) 10:00 Complete Blood Count LAB 09/09/25 Logged 04:00 Comprehensive LAB 09/09/25 Logged Metabolic Panel 04:00 Hepatitis B Surface LAB 09/09/25 Logged Antigen 02:00 Hepatitis C Antibody LAB 09/09/25 Logged 02:00 Afp Serum Tumor Marker LAB 09/09/25 Logged 04:00 Visit Coding STANDARD RES Billing Provider: PB VITAL MD Date of Service if different f: Sep 08, 2025 Common Visit Codes: [id number] INP/OBS CARE (HIGH) Secondary Visit Codes: [id number] CARE PLAN 30 MINUTES LEAH VENTURA RESIDENT Sep 09, 2025 05:50
[2025-09-09] MEDS: SODIUM CHLORIDE 0.9% 250 ML IV ONE (05:57)
[2025-09-09] MEDS: SUCRALFATE 1 GM/10 ML ORAL SUSP PO SCH (06:29)
[2025-09-09 07:09] LABS: Hematocrit 26.1 % (36.0-46.0); Hemoglobin 9.2 g/dL (12.2-16.2); Mean Corpuscular Hemoglobin 34.3 pg (28.0-32.0); Mean Corpuscular Volume 97.6 fL (80.0-100.0); Nucleated Red Blood Cells % 0.2 %
[2025-09-09 07:14] LABS: Anion Gap 14 (5-15); BUN/Creatinine Ratio 27.1 (10.0-20.0); Carbon Dioxide 23 mmol/L (20-31); Chloride 100 mmol/L (98-107); Glucose 95 mg/dL (74-106); Potassium 4.6 mmol/L (3.5-5.1); Sodium 137 mmol/L (136-145); Total Protein 5.9 g/dL (5.7-8.2)
[2025-09-09 07:15] LABS: Alanine Aminotransferase 90 U/L (7-40); Albumin 2.6 g/dL (3.2-4.8); Alkaline Phosphatase 133 U/L (46-116); Bilirubin, Total 1.7 mg/dL (0.2-1.0); Blood Urea Nitrogen 23 mg/dL (9-23); Calcium 8.6 mg/dL (8.7-10.4)
[2025-09-09] MEDS: PANTOPRAZOLE 40 MG/10 ML VIAL INJ IV SCH (10:12)
[2025-09-09] MEDS: LACTULOSE 20Gm/30ML SOLN PO SCH (10:12)
--- NOTE | 2025-09-09 13:33 | DVHPN2 ---
Reviewed: H&P Changes from previous H/P or p: No Changes General: Per HPI Objective Vitals Vital Signs Date Time Temp Pulse Resp B/P (MAP) Pulse Ox O2 Delivery O2 Flow Rate FiO2 09/09/25 08:55 98.6 107 19 102/80 (87) 100 98.6 09/09/25 08:00 Room Air* 0 21 Intake/Output Intake and Output 09/09/25 07:00 Intake Total 650 ml Balance 650 ml Intake Oral 150 ml IV Total 500 ml Exam Skin - Patients skin is warm and dry. HEENT - normocephalic, atraumatic, moist mucous membranes, minimal scleral icterus, mild conjunctival pallor. Neck - full ROM, no LAD, no JVD Pulmonary - B/L clear breath sounds without any wheezing, rales or stridor cardiovascular - regular S1,S2 heard, no added sounds, no murmurs appreciated. peripheral pulses normal radial 2+, pedal 2+. Trace bilateral lower extremity pitting edema GI - soft abdomen with a tenderness to palpation in the epigastrium, right upper quadrant with a likely positive Chamberlain's sign. no hepatospleenomegaly. Bowel sounds slightly hypoactive Neurological - Patient is A/O X 4 . Bilateral upper extremity strength 5/5, bilateral lower extremity strength 5/5, no facial droop, normal speech, no tremor, no sensory deficiets. Catheterization was Medications Current Medications Medications Dose Ordered Sig/Giuliana Route Start Time Stop Time Status Last Admin Dose Admin Ceftriaxone Sodium 50 ml @ 100 mls/hr DAILY@09 IV 09/09/25 09:00 09/09/25 10:13 100 MLS/HR Lactulose 30 ml BID PO 09/09/25 10:00 09/09/25 10:12 30 ML Ondansetron HCl 4 mg Q6HPRN PRN IV 09/08/25 22:30 Pantoprazole Sodium 40 mg DAILY IV 09/09/25 10:00 09/09/25 10:12 40 MG Sucralfate 1 gm BID@0600,2200 PO 09/09/25 06:00 09/09/25 06:29 1 GM Metronidazole 100 ml @ 100 mls/hr Q8HR IV 09/09/25 06:00 09/09/25 06:28 100 MLS/HR Laboratory Results Laboratory Tests 09/09/25 04:50 Chemistry Test 09/08/25 20:54 09/09/25 04:50 Calcium Level 8.7 mg/dL (8.7-10.4) 8.6 mg/dL (8.7-10.4) L Albumin 2.6 g/dL (3.2-4.8) L Total Protein 5.9 g/dL (5.7-8.2) Coagulation Test 09/08/25 22:43 Prothrombin Time 14.1 sec (9.3-11.8) H Prothrombin Time INR 1.37 (0.9-1.15) H Activated Partial Thromboplast Time 26.9 SEC (24.5-34.5) LFT Test 09/09/25 04:50 Alanine Aminotransferase (ALT) 90 U/L (7-40) H Alkaline Phosphatase 133 U/L (46-116) H Aspartate Amino Transferase (AST) 143 U/L (13-40) H Total Bilirubin 1.7 mg/dL (0.2-1.0) H Urinalysis Test 09/08/25 13:41 Urine Color [place] (Yellow) H Urine Clarity Turbid (Clear) H Urine pH 5.5 (5.0-9.0) Urine Specific [place] 1.021 (1.001-1.035) Urine Protein 1+ (Negative) H Urine Ketones 1+ (Negative) H Urine Blood Negative /uL (Negative) Urine Nitrite Negative (Negative) Urine Bilirubin 1+ (Negative) H Urine Urobilinogen 2 mg/dL (Negative) H Urine Leukocyte Esterase 1+ /uL (Negative) Urine RBC 2 /hpf (0 - 4) Urine Microscopic WBC 12 /HPF (0-5) H Urine Squamous Epithelial Cells Mod /hpf (<5) Urine Bacteria Few /hpf (None Seen) H Urine Hyaline Casts Many /lpf (0 - 2) Urine Mucus Few (None Seen) Urine Glucose Trace mg/dL (Normal) Labs and/or images reviewed: Labs reviewed by me, Image(s) reviewed by me Assessment/Plan Assessment/Plan 74-year-old female presented to the hospital with a chief complaint of abdominal pain and nausea for the last 2 days. Patient reported that since the last 2 days she has been having epigastric/right upper quadrant/mid abdominal pain which is nonradiating, constant with intermittent episodes of sharp pain, not able to eat food and does not have an appetite, no positional variation, associated with the intractable nausea and patient had vomiting while she was in the ER which was mostly bile without any blood. She also reported of constipation on and off and last bowel movement was 2 days ago. Patient denied any shortness of breath, cough, fever, chills, no recent weight loss, bleeding per rectum or hematemesis, dysuria, frequency. - Past medical history: Liver cirrhosis, gallstones 09/09: Patient here with abdominal pain, on CT showing moderate ascites with cirrhosis with concern also for gastroesophageal varices. Liver also concerning for heterogenous mass concern for hepatocellular cancer normal, with the additional multiple small hypodense lesions. There is also some thickening colonic wall ascending and transverse colon could be portal hypertension and/or infectious colitis. Fibroid uterus. Patient is started on ceftriaxone for SBP with metronidazole, possible SBP versus gastroenteritis. Also started on lactulose 30 mL b.i.d.. On Protonix 40 IV daily. Gastritis possible. Pending workup for cirrhosis. UA concerning for acute cystitis,. CMP concerning for alcoholic LFT pattern, with hyperbilirubinemia 1.7. ALP elevated. Hypoalbuminemia, some mild non-anion gap metabolic acidosis which is resolved now. Thrombocytopenia likely for cirrhosis. Diagnosis: Acute gastroenteritis, infectious etiology likely Acute gastritis Acute SBP-possible Intractable nausea, vomiting Intractable abdominal pain Dehydration likely due to above Acute cholecystitis ruled out Liver mass ?Hepatocellular Carcinoma h/o liver cirrhosis Liver cirrhosis MELD Na 16, child Brito B Portal hypertension with Gastroesophageal varices [id number] ascites Colitis ?Inflammatory Constipation Urinary tract infection Fibroid uterus Plan - CT abdomen pelvis with contrast reviewed - gallbladder ultrasound showed no gallstones or acute cholecystitis - acute hepatitis panel, afp pending - IV fluids since the patient is dehydrated and poor oral intake - IV ceftriaxone and metronidazole - Protonix - lactulose b.i.d. Med surge Full code Plan discussed with: Patient Date of Service: Sep 09, 2025 Billing Provider: RAMBO SHI MD Common Visit Codes: [id number] INP/OBS CARE(HIGH) RAMBO SHI MD Sep 09, 2025 13:33
[2025-09-10 01:00] VITALS: BP 111/58; PULSE 98; RESP 16; TEMP 98.3; O2SAT 97
[2025-09-10 05:00] VITALS: BP 109/61; PULSE 93; RESP 17; TEMP 98.1; O2SAT 97
[2025-09-10 06:48] LABS: Hematocrit 23.8 % (36.0-46.0); Hemoglobin 8.5 g/dL (12.2-16.2); Mean Corpuscular Hemoglobin 35.4 pg (28.0-32.0); Mean Corpuscular Volume 99.3 fL (80.0-100.0); Nucleated Red Blood Cells % 0.2 %
[2025-09-10 07:02] LABS: Anion Gap 9 (5-15); BUN/Creatinine Ratio 25.8 (10.0-20.0); Blood Urea Nitrogen 17 mg/dL (9-23); Carbon Dioxide 21 mmol/L (20-31); Chloride 103 mmol/L (98-107); Potassium 4.2 mmol/L (3.5-5.1); Total Protein 6.1 g/dL (5.7-8.2)
[2025-09-10 07:04] LABS: Alanine Aminotransferase 153 U/L (7-40); Albumin 2.8 g/dL (3.2-4.8); Alkaline Phosphatase 132 U/L (46-116); Bilirubin, Total 1.9 mg/dL (0.2-1.0); Calcium 8.3 mg/dL (8.7-10.4); Glucose 118 mg/dL (74-106); Sodium 133 mmol/L (136-145)
[2025-09-10 08:52] VITALS: BP 106/63; PULSE 95; RESP 18; TEMP 98; O2SAT 97
[2025-09-10 10:20] LABS: Hepatitis B Surface Antigen Negative (Negative); Hepatitis C Antibody Negative (Negative)
[2025-09-10 10:21] LABS: Hepatitis B Surface Antigen Negative (Negative)
[2025-09-10 10:29] LABS: Hepatitis C Antibody Negative (Negative)
[2025-09-10] MEDS: FUROSEMIDE 20 MG/2 ML VIAL IV SCH (10:35)
[2025-09-10 13:00] VITALS: BP 119/74; PULSE 87; RESP 18; TEMP 98; O2SAT 96
--- NOTE | 2025-09-10 13:21 | DVHPN2 ---
Reviewed: H&P Changes from previous H/P or p: No Changes General: Per HPI Objective Vitals Vital Signs Date Time Temp Pulse Resp B/P (MAP) Pulse Ox O2 Delivery O2 Flow Rate FiO2 09/10/25 10:35 106/63 09/10/25 08:52 98.0 95 18 97 98.0 09/10/25 08:15 Room Air* 0 21 Intake/Output Intake and Output 09/10/25 07:00 Intake Total 1190 ml Balance 1190 ml Intake Oral 940 ml IV Total 250 ml # Voids 4 Exam Skin - Patients skin is warm and dry. HEENT - normocephalic, atraumatic, moist mucous membranes, minimal scleral icterus, mild conjunctival pallor. Neck - full ROM, no LAD, no JVD Pulmonary - B/L clear breath sounds without any wheezing, rales or stridor cardiovascular - regular S1,S2 heard, no added sounds, no murmurs appreciated. peripheral pulses normal radial 2+, pedal 2+. Trace bilateral lower extremity pitting edema GI - soft abdomen with a tenderness to palpation in the epigastrium, right upper quadrant with a likely positive Chamberlain's sign. no hepatospleenomegaly. Bowel sounds slightly hypoactive Neurological - Patient is A/O X 4 . Bilateral upper extremity strength 5/5, bilateral lower extremity strength 5/5, no facial droop, normal speech, no tremor, no sensory deficiets. Catheterization was Medications Current Medications Medications Dose Ordered Sig/Giuliana Route Start Time Stop Time Status Last Admin Dose Admin Ceftriaxone Sodium 50 ml @ 100 mls/hr DAILY@09 IV 09/09/25 09:00 09/10/25 10:34 100 MLS/HR Lactulose 30 ml BID PO 09/09/25 10:00 09/10/25 10:34 30 ML Ondansetron HCl 4 mg Q6HPRN PRN IV 09/08/25 22:30 Pantoprazole Sodium 40 mg DAILY IV 09/09/25 10:00 09/10/25 10:34 40 MG Sucralfate 1 gm BID@0600,2200 PO 09/09/25 06:00 09/10/25 06:06 1 GM Metronidazole 100 ml @ 100 mls/hr Q8HR IV 09/09/25 06:00 09/10/25 06:06 100 MLS/HR Furosemide 20 mg DAILY IV 09/10/25 10:00 09/10/25 10:35 20 MG Laboratory Results Laboratory Tests 09/10/25 05:31 Chemistry Test 09/10/25 05:31 Albumin 2.8 g/dL (3.2-4.8) L Calcium Level 8.3 mg/dL (8.7-10.4) L Total Protein 6.1 g/dL (5.7-8.2) LFT Test 09/10/25 05:31 Alanine Aminotransferase (ALT) 153 U/L (7-40) H Alkaline Phosphatase 132 U/L (46-116) H Aspartate Amino Transferase (AST) 253 U/L (13-40) H Total Bilirubin 1.9 mg/dL (0.2-1.0) H Urinalysis Test 09/08/25 13:41 Urine Color [place] (Yellow) H Urine Clarity Turbid (Clear) H Urine pH 5.5 (5.0-9.0) Urine Specific [place] 1.021 (1.001-1.035) Urine Protein 1+ (Negative) H Urine Ketones 1+ (Negative) H Urine Blood Negative /uL (Negative) Urine Nitrite Negative (Negative) Urine Bilirubin 1+ (Negative) H Urine Urobilinogen 2 mg/dL (Negative) H Urine Leukocyte Esterase 1+ /uL (Negative) Urine RBC 2 /hpf (0 - 4) Urine Microscopic WBC 12 /HPF (0-5) H Urine Squamous Epithelial Cells Mod /hpf (<5) Urine Bacteria Few /hpf (None Seen) H Urine Hyaline Casts Many /lpf (0 - 2) Urine Mucus Few (None Seen) Urine Glucose Trace mg/dL (Normal) Labs and/or images reviewed: Labs reviewed by me, Image(s) reviewed by me Assessment/Plan Assessment/Plan 74-year-old female presented to the hospital with a chief complaint of abdominal pain and nausea for the last 2 days. Patient reported that since the last 2 days she has been having epigastric/right upper quadrant/mid abdominal pain which is nonradiating, constant with intermittent episodes of sharp pain, not able to eat food and does not have an appetite, no positional variation, associated with the intractable nausea and patient had vomiting while she was in the ER which was mostly bile without any blood. She also reported of constipation on and off and last bowel movement was 2 days ago. Patient denied any shortness of breath, cough, fever, chills, no recent weight loss, bleeding per rectum or hematemesis, dysuria, frequency. - Past medical history: Liver cirrhosis, gallstones 09/09: Patient here with abdominal pain, on CT showing moderate ascites with cirrhosis with concern also for gastroesophageal varices. Liver also concerning for heterogenous mass concern for hepatocellular cancer normal, with the additional multiple small hypodense lesions. There is also some thickening colonic wall ascending and transverse colon could be portal hypertension and/or infectious colitis. Fibroid uterus. Patient is started on ceftriaxone for SBP with metronidazole, possible SBP versus gastroenteritis. Also started on lactulose 30 mL b.i.d.. On Protonix 40 IV daily. Gastritis possible. Pending workup for cirrhosis. UA concerning for acute cystitis,. CMP concerning for alcoholic LFT pattern, with hyperbilirubinemia 1.7. ALP elevated. Hypoalbuminemia, some mild non-anion gap metabolic acidosis which is resolved now. Thrombocytopenia likely for cirrhosis. 09/10: We will need records, having lots of diarrhea now we will decrease lactulose 30 once daily, continue Protonix. AFP still pending,. Continue treatment with antibiotics for possible SBP and/or acute cystitis. LFTs continue to rise, bili rising. Multiple masses and nodules in liver, consult GI. We will reassess ultrasound for ascites. Continue Lasix 20 IV daily, add spironolactone 25 daily p.o., Diagnosis: Acute gastroenteritis, infectious etiology likely Acute gastritis Acute SBP-possible Intractable nausea, vomiting Intractable abdominal pain Dehydration likely due to above Acute cholecystitis ruled out Liver mass ?Hepatocellular Carcinoma h/o liver cirrhosis Liver cirrhosis MELD Na 16, child Brito B Portal hypertension with Gastroesophageal varices [id number] ascites Colitis ?Inflammatory Constipation Urinary tract infection Fibroid uterus Plan: - CT abdomen pelvis with contrast reviewed - gallbladder ultrasound showed no gallstones or acute cholecystitis - acute hepatitis panel, afp pending - IV fluids since the patient is dehydrated and poor oral intake - IV ceftriaxone and metronidazole - Protonix - lactulose b.i.d. Med/surg Full code Plan discussed with: Patient My Orders Orders - RAMBO SHI MD Procedure Category Date Status Time Furosemide Injection PHA 09/10/25 In Process (Lasix Injection) 10:00 Date of Service: Sep 10, 2025 Billing Provider: RAMBO SHI MD Common Visit Codes: [id number] INP/OBS CARE(HIGH) RAMBO SHI MD Sep 10, 2025 13:21
[2025-09-10 17:00] VITALS: BP 105/50; PULSE 86; RESP 18; TEMP 97.9; O2SAT 98
--- NOTE | 2025-09-10 17:21 | DVHINCON2 ---
Date of service: Sep 10, [address] Galarza Reason for Consultation Cirrhosis and liver mass History of Present Illness 74-year-old female presented to the hospital with a chief complaint of abdominal pain and nausea since the last 2 days she has been having epigastric/right upper quadrant/mid abdominal pain which is nonradiating, constant with intermittent episodes of sharp pain, not able to eat food and does not have an appetite, associated with the intractable nausea and patient had vomiting while she was in the ER which was mostly bile without any blood. She also reported of constipation on and off and last bowel movement was [address] scan showed cirrhosis ascites portal hypertension with varices. Patient also has a liver mass about 5.6 x 6.8 cm suspicious for hepatocellular carcinoma Past Medical History Past medical history: Liver cirrhosis, gallstones Past Surgical History Surgical history: Denies Family History: Cardiovascular disease G8 MOTHER Diabetes mellitus G8 MOTHER Allergies: Coded Allergies: NO KNOWN ALLERGIES (Unverified , 09/03/21) Home Meds Active Scripts Levofloxacin Hemihydrate (LEVOFLOXACIN) 750 Mg Tab, 1 TAB PO DAILY for 5 Days, #5 TAB Prov:ADRIENNE FERGUSON 03/23/25 Acetaminophen (Acetaminophen) 500 Mg Tab, 500 MG PO Q6HPRN, #30 TAB 0 Refills Prov:JEZ CAMACHO 09/07/23 Reported Medications Cyanocobalamin (Vitamin B12) 100 Mcg Tab, 100 MCG PO DAILY, TAB 09/04/21 Cholecalciferol (VITAMIN D3) 2,000 Unit Tab, 1 TAB PO DAILY, #30 TAB 5 Refills 09/04/21 Current Medications Current Medications Medications (Trade) Dose Ordered Sig/Giuliana Route PRN Reason Start Time Stop Time Status Last Admin Furosemide (Lasix Injection) 20 mg DAILY IV 09/10/25 10:00 09/10/25 10:35 Lactulose 30 ml DAILY PO 09/11/25 10:00 Spironolactone (Aldactone) 25 mg DAILY PO 09/10/25 22:00 Vital Signs Vital Signs Date Time Temp Pulse Resp B/P (MAP) Pulse Ox O2 Delivery O2 Flow Rate FiO2 09/10/25 13:00 98.0 87 18 119/74 (89) 96 98.0 09/10/25 08:15 Room Air* 0 21 Physical Exam Patient is awake alert and oriented x4 HEENT - normocephalic, atraumatic, moist mucous membranes, minimal scleral icterus, mild conjunctival pallor. Pulmonary - B/L clear breath sounds without any wheezing, rales or stridor cardiovascular - regular S1,S2 heard, no added sounds, no murmurs appreciated. Trace bilateral lower extremity pitting edema GI - soft abdomen with a tenderness to palpation in the epigastrium, right upper quadrant Labs/Diagnostic Data Labs Test 09/10/25 05:31 09/09/25 20:27 09/09/25 04:50 09/09/25 00:23 Range/Units White Blood Count 7.6 4.4-10.8 10^3/uL Red Blood Count 2.40 L 4.0-5.20 10^6/uL Hemoglobin 8.5 L 12.2-16.2 g/dL Hematocrit 23.8 L 36.0-46.0 % Mean Corpuscular Volume 99.3 80.0-100.0 fL Mean Corpuscular Hemoglobin 35.4 H 28.0-32.0 pg Mean Corpuscular Hemoglobin Concent 35.6 32.0-36.0 g/dL Red Cell Distribution Width 14.8 H 11.8-14.3 % Platelet Count 71 L 140-450 10^3/uL Mean Platelet Volume 9.9 6.9-10.8 fL Neutrophils (%) (Auto) 60.5 37.0-80.0 % Lymphocytes (%) (Auto) 27.4 10.0-50.0 % Monocytes (%) (Auto) 10.5 0.0-12.0 % Eosinophils (%) (Auto) 1.0 0.0-7.0 % Basophils (%) (Auto) 0.6 0.0-2.0 % Neutrophils # (Auto) 4.6 1.6-8.6 10 ^3/uL Lymphocytes # (Auto) 2.1 0.4-5.4 10 ^3/uL Monocytes # (Auto) 0.8 0-1.3 10 ^3/uL Eosinophils # (Auto) 0.1 0-0.8 10 ^3/uL Basophils # (Auto) 0 0-0.2 10 ^3/uL Nucleated Red Blood Cells 0.2 % Sodium Level 133 L 136-145 mmol/L Potassium Level 4.2 3.5-5.1 mmol/L Chloride Level 103 98-107 mmol/L Carbon Dioxide Level 21 20-31 mmol/L Anion Gap 9 5-15 Blood Urea Nitrogen 17 9-23 mg/dL Creatinine 0.66 0.550-1.02 mg/dL Glomerular Filtration Rate Calc 93 >90 mL/min BUN/Creatinine Ratio 25.8 H 10.0-20.0 Serum Glucose 118 H 74-106 mg/dL Calcium Level 8.3 L 8.7-10.4 mg/dL Total Bilirubin 1.9 H 0.2-1.0 mg/dL Aspartate Amino Transferase (AST) 253 H 13-40 U/L Alanine Aminotransferase (ALT) 153 H 7-40 U/L Alkaline Phosphatase 132 H 46-116 U/L Total Protein 6.1 5.7-8.2 g/dL Albumin 2.8 L 3.2-4.8 g/dL Stool Occult Blood Negative Negative Stool Occult Blood Sample #3 Negative Hepatitis B Surface Antigen Negative Negative Hepatitis C Antibody Negative Negative POC Glucose 210 H 70-106 mg/dl Test 09/08/25 22:43 09/08/25 14:03 09/08/25 13:41 09/08/25 13:04 Range/Units Prothrombin Time 14.1 H 9.3-11.8 sec Prothrombin Time INR 1.37 H 0.9-1.15 Activated Partial Thromboplast Time 26.9 24.5-34.5 SEC Hepatitis A IgM Antibody Negative Hepatitis B Core IgM Antibody Negative Negative Troponin I High Sensitivity 3 L </=34 ng/L Urine Color [employer] H Yellow Urine Clarity Turbid H Clear Urine pH 5.5 5.0-9.0 Urine Specific [place] 1.021 1.001-1.035 Urine Protein 1+ H Negative Urine Ketones 1+ H Negative Urine Blood Negative Negative /uL Urine Nitrite Negative Negative Urine Bilirubin 1+ H Negative Urine Urobilinogen 2 H Negative mg/dL Urine Leukocyte Esterase 1+ Negative /uL Urine RBC 2 0 - 4 /hpf Urine Microscopic WBC 12 H 0-5 /HPF Urine Squamous Epithelial Cells Mod <5 /hpf Urine Bacteria Few H None Seen /hpf Urine Hyaline Casts Many 0 - 2 /lpf Urine Mucus Few None Seen Urine Glucose Trace Normal mg/dL Direct Bilirubin 1.0 H <0.3 mg/dL Lipase 55 H 12-53 U/L CT SCAN ABD PELVIS IMPRESSION: 1. Cirrhosis and portal hypertension with moderate ascites, portosystemic collateral vessels, and gastroesophageal varices. 2. Heterogeneously Enhancing mass off of segment 4 of the liver concerning for hepatocellular carcinoma. 3. Multiple additional small hypodense lesions in both lobes of the liver which can be followed up on surveillance imaging. 4. Mild wall thickening of the long segment of ascending and transverse colon which could be related to portal hypertension versus mild infectious or inflammatory colitis. 5. Fibroid uterus. Problems(with codes): (1) Liver mass (2) Portal hypertension (3) Ascites (4) Cirrhosis (5) Abdominal pain (6) Generalized weakness Plan/Recommendation Plan Continue supportive care Low-dose diuretics Await serum alpha fetoprotein , check CEA level Patient will need outpatient referral Oncology and consider possible referral to higher level of care for further management Plan discussed with: Other (Nurse) MARJORIE DRIVER MD Sep 10, 2025 17:21
[2025-09-10 21:00] VITALS: BP 101/47; PULSE 88; RESP 16; TEMP 98; O2SAT 97
[2025-09-10] MEDS: SPIRONOLACTONE 25 MG TAB PO SCH (21:21)
[2025-09-11 00:37] VITALS: BP 115/67; PULSE 89; RESP 17; TEMP 98; O2SAT 96
[2025-09-11 05:00] VITALS: BP 110/63; PULSE 81; RESP 17; TEMP 98; O2SAT 98
[2025-09-11 07:28] LABS: Hemoglobin 7.6 g/dL (12.2-16.2)
[2025-09-11 07:32] LABS: Hematocrit 21.4 % (36.0-46.0); Mean Corpuscular Hemoglobin 34.7 pg (28.0-32.0); Mean Corpuscular Volume 97.7 fL (80.0-100.0); Nucleated Red Blood Cells % 0.2 %
[2025-09-11 07:52] LABS: Anion Gap 8 (5-15); BUN/Creatinine Ratio 15.7 (10.0-20.0); Carbon Dioxide 22 mmol/L (20-31); Chloride 105 mmol/L (98-107); Potassium 4.1 mmol/L (3.5-5.1)
[2025-09-11 07:53] LABS: Alanine Aminotransferase 134 U/L (7-40); Albumin 2.5 g/dL (3.2-4.8); Alkaline Phosphatase 120 U/L (46-116); Bilirubin, Total 1.5 mg/dL (0.2-1.0); Blood Urea Nitrogen 8 mg/dL (9-23); Calcium 8.0 mg/dL (8.7-10.4); Glucose 110 mg/dL (74-106); Sodium 135 mmol/L (136-145); Total Protein 5.5 g/dL (5.7-8.2)
[2025-09-11 09:00] VITALS: BP 107/61; PULSE 84; RESP 16; TEMP 97.9; O2SAT 98
--- NOTE | 2025-09-11 10:00 | DVHPN2 ---
Reviewed: H&P General: Per HPI Objective Vitals Vital Signs Date Time Temp Pulse Resp B/P (MAP) Pulse Ox O2 Delivery O2 Flow Rate FiO2 09/11/25 09:00 97.9 84 16 107/61 (76) 98 97.9 09/11/25 08:00 Room Air* 0 21 Intake/Output Intake and Output 09/11/25 07:00 Intake Total 1710 ml Balance 1710 ml Intake Oral 1560 ml IV Total 150 ml # Voids 7 Exam Skin - Patients skin is warm and dry. HEENT - normocephalic, atraumatic, moist mucous membranes, minimal scleral icterus, mild conjunctival pallor. Neck - full ROM, no LAD, no JVD Pulmonary - B/L clear breath sounds without any wheezing, rales or stridor cardiovascular - regular S1,S2 heard, no added sounds, no murmurs appreciated. peripheral pulses normal radial 2+, pedal 2+. Trace bilateral lower extremity pitting edema GI - soft abdomen with a tenderness to palpation in the epigastrium, right upper quadrant with a likely positive Chamberlain's sign. no hepatospleenomegaly. Bowel sounds slightly hypoactive Neurological - Patient is A/O X 4 . Bilateral upper extremity strength 5/5, bilateral lower extremity strength 5/5, no facial droop, normal speech, no tremor, no sensory deficiets. Catheterization was Medications Current Medications Medications Dose Ordered Sig/Giuliana Route Start Time Stop Time Status Last Admin Dose Admin Ceftriaxone Sodium 50 ml @ 100 mls/hr DAILY@09 IV 09/09/25 09:00 09/10/25 10:34 100 MLS/HR Ondansetron HCl 4 mg Q6HPRN PRN IV 09/08/25 22:30 Pantoprazole Sodium 40 mg DAILY IV 09/09/25 10:00 09/10/25 10:34 40 MG Sucralfate 1 gm BID@0600,2200 PO 09/09/25 06:00 09/11/25 06:20 1 GM Metronidazole 100 ml @ 100 mls/hr Q8HR IV 09/09/25 06:00 09/11/25 06:20 100 MLS/HR Furosemide 20 mg DAILY IV 09/10/25 10:00 09/10/25 10:35 20 MG Lactulose 30 ml DAILY PO 09/11/25 10:00 Spironolactone 25 mg DAILY PO 09/10/25 22:00 Laboratory Results Laboratory Tests 09/11/25 06:40 Chemistry Test 09/11/25 06:40 Albumin 2.5 g/dL (3.2-4.8) L Calcium Level 8.0 mg/dL (8.7-10.4) L Total Protein 5.5 g/dL (5.7-8.2) L LFT Test 09/11/25 06:40 Alanine Aminotransferase (ALT) 134 U/L (7-40) H Alkaline Phosphatase 120 U/L (46-116) H Aspartate Amino Transferase (AST) 196 U/L (13-40) H Total Bilirubin 1.5 mg/dL (0.2-1.0) H Urinalysis Test 09/08/25 13:41 Urine Color [place] (Yellow) H Urine Clarity Turbid (Clear) H Urine pH 5.5 (5.0-9.0) Urine Specific [place] 1.021 (1.001-1.035) Urine Protein 1+ (Negative) H Urine Ketones 1+ (Negative) H Urine Blood Negative /uL (Negative) Urine Nitrite Negative (Negative) Urine Bilirubin 1+ (Negative) H Urine Urobilinogen 2 mg/dL (Negative) H Urine Leukocyte Esterase 1+ /uL (Negative) Urine RBC 2 /hpf (0 - 4) Urine Microscopic WBC 12 /HPF (0-5) H Urine Squamous Epithelial Cells Mod /hpf (<5) Urine Bacteria Few /hpf (None Seen) H Urine Hyaline Casts Many /lpf (0 - 2) Urine Mucus Few (None Seen) Urine Glucose Trace mg/dL (Normal) Assessment/Plan Assessment/Plan 74-year-old female presented to the hospital with a chief complaint of abdominal pain and nausea for the last 2 days. Patient reported that since the last 2 days she has been having epigastric/right upper quadrant/mid abdominal pain which is nonradiating, constant with intermittent episodes of sharp pain, not able to eat food and does not have an appetite, no positional variation, associated with the intractable nausea and patient had vomiting while she was in the ER which was mostly bile without any blood. She also reported of constipation on and off and last bowel movement was 2 days ago. Patient denied any shortness of breath, cough, fever, chills, no recent weight loss, bleeding per rectum or hematemesis, dysuria, frequency. - Past medical history: Liver cirrhosis, gallstones 09/09: Patient here with abdominal pain, on CT showing moderate ascites with cirrhosis with concern also for gastroesophageal varices. Liver also concerning for heterogenous mass concern for hepatocellular cancer normal, with the additional multiple small hypodense lesions. There is also some thickening colonic wall ascending and transverse colon could be portal hypertension and/or infectious colitis. Fibroid uterus. Patient is started on ceftriaxone for SBP with metronidazole, possible SBP versus gastroenteritis. Also started on lactulose 30 mL b.i.d.. On Protonix 40 IV daily. Gastritis possible. Pending workup for cirrhosis. UA concerning for acute cystitis,. CMP concerning for alcoholic LFT pattern, with hyperbilirubinemia 1.7. ALP elevated. Hypoalbuminemia, some mild non-anion gap metabolic acidosis which is resolved now. Thrombocytopenia likely for cirrhosis. 09/10: We will need records, having lots of diarrhea now we will decrease lactulose 30 once daily, continue Protonix. AFP still pending,. Continue treatment with antibiotics for possible SBP and/or acute cystitis. LFTs continue to rise, bili rising. Multiple masses and nodules in liver, consult GI. We will reassess ultrasound for ascites. Continue Lasix 20 IV daily, add spironolactone 25 daily p.o., 09/11: Radiology recommends outpatient imaging and biopsy for further diagnosis. We will increase spironolactone to 50. Continue Lasix 20 IV. GI consult to follow up, possible discharge today. Diagnosis: Acute gastroenteritis, infectious etiology likely Acute gastritis Acute SBP-possible Intractable nausea, vomiting Intractable abdominal pain Dehydration likely due to above Acute cholecystitis ruled out Liver mass ?Hepatocellular Carcinoma h/o liver cirrhosis Liver cirrhosis MELD Na 16, child Brito B Portal hypertension with Gastroesophageal varices [id number] ascites Colitis ?Inflammatory Constipation Urinary tract infection Fibroid uterus Plan: - CT abdomen pelvis with contrast reviewed - gallbladder ultrasound showed no gallstones or acute cholecystitis - acute hepatitis panel, afp pending - IV fluids since the patient is dehydrated and poor oral intake - IV ceftriaxone and metronidazole - Protonix - lactulose b.i.d. Med/surg Full code My Orders Orders - RAMBO SHI MD Procedure Category Date Status Time * [facility] Representative CONS 09/10/25 Transmitted 13:19 Lactulose Oral PHA 09/11/25 In Process 10:00 Spironolactone PHA 09/10/25 In Process (Aldactone) 22:00 * Radiologist Consult CONS 09/10/25 Transmitted 17:55 RAMBO SHI MD Sep 11, 2025 10:00
[2025-09-11] MEDS: SPIRONOLACTONE 25 MG TAB PO SCH (10:22)
[2025-09-11] MEDS: LACTULOSE 20Gm/30ML SOLN PO SCH (10:22)
[2025-09-11 13:00] VITALS: BP 116/69; PULSE 87; RESP 18; TEMP 98.2; O2SAT 98
--- NOTE | 2025-09-11 13:15 | DVHDS2 ---
Discharge Summary Date of Admission Sep 08, 2025 at 22:16 Date of Discharge: Sep 11, 2025 Labs/Diagnostic Data: Laboratory Results Test 09/11/25 06:40 09/09/25 20:27 09/09/25 04:50 09/09/25 00:23 White Blood Count 3.5 10^3/uL (4.4-10.8) Red Blood Count 2.19 10^6/uL (4.0-5.20) Hemoglobin 7.6 g/dL (12.2-16.2) Hematocrit 21.4 % (36.0-46.0) Mean Corpuscular Volume 97.7 fL (80.0-100.0) Mean Corpuscular Hemoglobin 34.7 pg (28.0-32.0) Mean Corpuscular Hemoglobin Concent 35.6 g/dL (32.0-36.0) Red Cell Distribution Width 14.4 % (11.8-14.3) Platelet Count 47 10^3/uL (140-450) Mean Platelet Volume 9.5 fL (6.9-10.8) Neutrophils (%) (Auto) 60.5 % (37.0-80.0) Lymphocytes (%) (Auto) 26.6 % (10.0-50.0) Monocytes (%) (Auto) 10.9 % (0.0-12.0) Eosinophils (%) (Auto) 1.5 % (0.0-7.0) Basophils (%) (Auto) 0.5 % (0.0-2.0) Neutrophils # (Auto) 2.1 10 ^3/uL (1.6-8.6) Lymphocytes # (Auto) 0.9 10 ^3/uL (0.4-5.4) Monocytes # (Auto) 0.4 10 ^3/uL (0-1.3) Eosinophils # (Auto) 0.1 10 ^3/uL (0-0.8) Basophils # (Auto) 0 10 ^3/uL (0-0.2) Nucleated Red Blood Cells 0.2 % Sodium Level 135 mmol/L (136-145) Potassium Level 4.1 mmol/L (3.5-5.1) Chloride Level 105 mmol/L (98-107) Carbon Dioxide Level 22 mmol/L (20-31) Anion Gap 8 (5-15) Blood Urea Nitrogen 8 mg/dL (9-23) Creatinine 0.51 mg/dL (0.550-1.02) Glomerular Filtration Rate Calc 99 mL/min (>90) BUN/Creatinine Ratio 15.7 (10.0-20.0) Serum Glucose 110 mg/dL (74-106) Calcium Level 8.0 mg/dL (8.7-10.4) Total Bilirubin 1.5 mg/dL (0.2-1.0) Aspartate Amino Transferase (AST) 196 U/L (13-40) Alanine Aminotransferase (ALT) 134 U/L (7-40) Alkaline Phosphatase 120 U/L (46-116) Total Protein 5.5 g/dL (5.7-8.2) Albumin 2.5 g/dL (3.2-4.8) Carcinoembryonic Antigen 6.26 ng/mL (<=5.0) Stool Occult Blood Negative (Negative) Stool Occult Blood Sample #3 (Negative) Tumor Marker Alpha Fetoprotein 365.0 ng/mL (0.0-9.2) Hepatitis B Surface Antigen Negative (Negative) Hepatitis C Antibody Negative (Negative) POC Glucose 210 mg/dl (70-106) Test 09/08/25 22:43 09/08/25 14:03 09/08/25 13:41 09/08/25 13:04 Prothrombin Time 14.1 sec (9.3-11.8) Prothrombin Time INR 1.37 (0.9-1.15) Activated Partial Thromboplast Time 26.9 SEC (24.5-34.5) Hepatitis A IgM Antibody Negative Hepatitis B Core IgM Antibody Negative (Negative) Troponin I High Sensitivity 3 ng/L (</=34) Urine Color [place] (Yellow) Urine Clarity Turbid (Clear) Urine pH 5.5 (5.0-9.0) Urine Specific [place] 1.021 (1.001-1.035) Urine Protein 1+ (Negative) Urine Ketones 1+ (Negative) Urine Blood Negative /uL (Negative) Urine Nitrite Negative (Negative) Urine Bilirubin 1+ (Negative) Urine Urobilinogen 2 mg/dL (Negative) Urine Leukocyte Esterase 1+ /uL (Negative) Urine RBC 2 /hpf (0 - 4) Urine Microscopic WBC 12 /HPF (0-5) Urine Squamous Epithelial Cells Mod /hpf (<5) Urine Bacteria Few /hpf (None Seen) Urine Hyaline Casts Many /lpf (0 - 2) Urine Mucus Few (None Seen) Urine Glucose Trace mg/dL (Normal) Direct Bilirubin 1.0 mg/dL (<0.3) Lipase 55 U/L (12-53) Other Laboratory Tests 09/11/25 06:40 Brief Hx & Hospital Course: 74-year-old female presented to the hospital with a chief complaint of abdominal pain and nausea for the last 2 days. Patient reported that since the last 2 days she has been having epigastric/right upper quadrant/mid abdominal pain which is nonradiating, constant with intermittent episodes of sharp pain, not able to eat food and does not have an appetite, no positional variation, associated with the intractable nausea and patient had vomiting while she was in the ER which was mostly bile without any blood. She also reported of constipation on and off and last bowel movement was 2 days ago. Patient denied any shortness of breath, cough, fever, chills, no recent weight loss, bleeding per rectum or hematemesis, dysuria, frequency. - Past medical history: Liver cirrhosis, gallstones 09/09: Patient here with abdominal pain, on CT showing moderate ascites with cirrhosis with concern also for gastroesophageal varices. Liver also concerning for heterogenous mass concern for hepatocellular cancer normal, with the additional multiple small hypodense lesions. There is also some thickening colonic wall ascending and transverse colon could be portal hypertension and/or infectious colitis. Fibroid uterus. Patient is started on ceftriaxone for SBP with metronidazole, possible SBP versus gastroenteritis. Also started on lactulose 30 mL b.i.d.. On Protonix 40 IV daily. Gastritis possible. Pending workup for cirrhosis. UA concerning for acute cystitis,. CMP concerning for alcoholic LFT pattern, with hyperbilirubinemia 1.7. ALP elevated. Hypoalbuminemia, some mild non-anion gap metabolic acidosis which is resolved now. Thrombocytopenia likely for cirrhosis. 09/10: We will need records, having lots of diarrhea now we will decrease lactulose 30 once daily, continue Protonix. AFP still pending,. Continue treatment with antibiotics for possible SBP and/or acute cystitis. LFTs continue to rise, bili rising. Multiple masses and nodules in liver, consult GI. We will reassess ultrasound for ascites. Continue Lasix 20 IV daily, add spironolactone 25 daily p.o., 09/11: Radiology recommends outpatient imaging and biopsy for further diagnosis. We will increase spironolactone to 50. Continue Lasix 20 IV. GI consult to follow up, possible discharge today. Patient liver mass about 5.6 x 6.8 cm suspicious for hepatocellular carcinoma, further AFP elevated. patient needs stat outpatient workup and followup. Diagnosis: Acute gastroenteritis, infectious etiology likely NEW Liver mass, likely Hepatocellular Carcinoma h/o liver cirrhosis, AFP elevated acute UTI decompsenated liver cirrhosis, with ascites Acute gastritis possible Acute SBP, possible Liver cirrhosis MELD Na 16, child Brito B Portal hypertension with Gastroesophageal varices [id number] ascites Colitis , infectious possible. Intractable nausea, vomiting Intractable abdominal pain Dehydration likely due to above Acute cholecystitis ruled out Constipation Fibroid uterus plan: - stat outpatient followup with GI and radiology for biopsy - lasix 40mg daily, spironolactone 50mg daily - antibiotics augmentin 875mg 2x/day for 7 days - probitoics OTC ([facility] etc) , take one tablet daily for 1 month. - continue other medications - lacutlose 30mL daily - hydrate well. but maximum 1.5L /day - followup with pcp - followup DC clinic 1 week. Condition at Discharge: Guarded Final Diagnosis/Problems List Acute gastroenteritis, infectious etiology likely NEW Liver mass, likely Hepatocellular Carcinoma h/o liver cirrhosis, AFP elevated acute UTI decompsenated liver cirrhosis, with ascites Acute gastritis possible Acute SBP, possible Liver cirrhosis MELD Na 16, child Brito B Portal hypertension with Gastroesophageal varices Tydg-[id number] ascites Colitis , infectious possible. Intractable nausea, vomiting Intractable abdominal pain Dehydration likely due to above Acute cholecystitis ruled out Constipation Fibroid uterus Discharge Disposition: Home Discharge Instruct/Medications Scheduled Acetaminophen (Acetaminophen), 500 MG PO Q6HPRN Cholecalciferol (Vitamin D3), 1 TAB PO DAILY, (Reported) Cyanocobalamin (Vitamin B12), 100 MCG PO DAILY, (Reported) Levofloxacin Hemihydrate (Levofloxacin), 1 TAB PO DAILY Discharge Statement: "Patient was advised to return to the ER or call 911 if any headaches, dizziness, shortness of breath, chest pain, abdominal pain, bleeding, fevers, or worsening of medical condition. Patient was counseled about treatment plan, medications, possible side effects, patientverbalized understanding. All questions were answered to the best of my ability. This discharge took greater then 30 minutes in planning, reviewing documentation, counseling the patient, and discussing with other team members." ASSESSMENT ASSESSMENT Assessment Date of Service: Sep 11, 2025 Billing Provider: RAMBO SHI MD Common Visit Codes: 79446-JLS/OBS DISCH DAY >30min RAMBO SHI MD Sep 11, 2025 13:15
[2025-09-11] MEDS ORDERED: AUG875T PO (13:24)
[2025-09-11] MEDS ORDERED: PROB1CAP70 PO (13:24)
[2025-09-11] MEDS ORDERED: FURO20TA3 PO (13:24)
[2025-09-11] MEDS ORDERED: LACT10SO3 PO (13:24)
[2025-09-11] MEDS ORDERED: SPIR25TA8 PO (13:24)
[2025-09-11] MEDS ORDERED: BACL10TA PO (14:28)
[2025-09-11] MEDS ORDERED: OXYC15TA48 PO (14:28)
[2025-09-11] MEDS: BACLOFEN 10 MG TAB PO ONE (14:38)
--- NOTE | 2025-09-11 20:17 | DVHPN2 ---
Progress Note - Dictate Date Seen: Sep 11, 2025 (Late entryPatient seen at 3:00 p.m.) Medical Necessity Reason Pt with a Central, PICC or Fol: No Subjective No new complaints, generalized abdominal discomfort Patient was ambulating with a walker She is tolerating a diet No nausea vomiting Serum alpha fetoprotein elevated to 365 CEA level mildly elevated to 6.28 vital signs Vital Sign Date Time Temp Pulse Resp B/P (MAP) Pulse Ox O2 Delivery O2 Flow Rate FiO2 09/11/25 13:00 98.2 87 18 116/69 (85) 98 98.2 09/11/25 08:00 Room Air* 0 21 Total Intake and Output 09/10/25 09/10/25 09/11/25 15:00 23:00 07:00 Intake Total 440 ml 870 ml 400 ml Balance 440 ml 870 ml 400 ml objective Patient is awake alert and oriented x4 HEENT - normocephalic, atraumatic, moist mucous membranes, minimal scleral icterus, mild conjunctival pallor. Pulmonary - B/L clear breath sounds without any wheezing, rales or stridor cardiovascular - regular S1,S2 heard, no added sounds, no murmurs appreciated. Trace bilateral lower extremity pitting edema GI - soft abdomen with a tenderness to palpation in the epigastrium, right upper quadrant, distended laboratory and microbiology Laboratory Tests 09/11/25 06:40 Test 09/11/25 06:40 Range/Units Serum Glucose 110 H 74-106 mg/dL Problems(with codes): (1) Liver mass (2) Cirrhosis (3) Ascites (4) Portal hypertension (5) Abdominal pain (6) Generalized weakness Prognosis Plan Continue supportive care Low-dose diuretics Patient was noted fight of suspected diagnosis of hepatocellular carcinoma Discharge planning is in progress Patient will need outpatient referral Oncology and consider possible referral to higher level of care for further management Plan discussed with: Patient, Other (Nurse) MARJORIE DRIVER MD Sep 11, 2025 20:17
== END 2025-09-11 15:44 | disposition home or self-care (01) | DRG 432 ==
LOC: ER 11:54 → OVERFLOW 22:16 → CENTRAL 23:40
PROVIDERS: ADMIT Student in an Organized Health Care Education/Training Program; ATTEND Student in an Organized Health Care Education/Training Program
DX: K74.60 Unspecified cirrhosis of liver (principal); K65.2 Spontaneous bacterial peritonitis; C22.0 Liver cell carcinoma; R18.8 Other ascites; E88.09 Other disorders of plasma-protein metabolism, not elsewhere classified; E86.0 Dehydration; N39.0 Urinary tract infection, site not specified; I85.10 Secondary esophageal varices without bleeding; A09 Infectious gastroenteritis and colitis, unspecified; K76.6 Portal hypertension; D25.9 Leiomyoma of uterus, unspecified; K80.20 Calculus of gallbladder without cholecystitis without obstruction; K29.00 Acute gastritis without bleeding; Z82.49 Family history of ischemic heart disease and other diseases of the circulatory system; Z83.3 Family history of diabetes mellitus
CPT/HCPCS: 36415; 71045; 74177; 76705; 80048; 80053; 80074; 80076; 81001; 82105; 82270; 82378; 82962; 83690; 84132; 84484; 85025; 85610; 85730; 86803; 87340; G0378; J1815; J2470; J3490